=== PATIENT | female | born 1980 | race Caucasian/White ===

== ENCOUNTER → 2016-02-19 | Outpatient (CLI) | payer OTHER | LOC: M WUC 14:13 | PROVIDERS: ATTEND Family Medicine | DX: E03.9 Hypothyroidism, unspecified (principal) ==

== ENCOUNTER → 2016-03-18 | Outpatient (CLI) | payer OTHER ==
--- NOTE | 2016-03-18 15:48 | REP ---
Chest x-ray: Three views. History: Acute frontal sinusitis. Cough for 2 weeks. Findings: A small to moderate size hiatal hernia is seen. There are clips in the upper abdomen suggesting previous cholecystectomy. The lungs are well inflated and clear. No infiltrate is seen. Heart size is normal. Pulmonary vasculature is not increased. No significant bony abnormality. Impression: Hiatal hernia noted behind the heart. Otherwise no acute disease. Signed by Isac Car MD 03/18/2016 04:35 P
== END ==
LOC: M ADAMS 09:51
PROVIDERS: ATTEND Family Medicine
DX: J01.10 Acute frontal sinusitis, unspecified (principal); K44.9 Diaphragmatic hernia without obstruction or gangrene

== ENCOUNTER → 2016-03-24 | Outpatient (REF) | payer OTHER | LOC: M LABNEURO 09:44 | PROVIDERS: ATTEND Physician Assistant Medical | DX: G43.909 Migraine, unspecified, not intractable, without status migrainosus (principal); R42 Dizziness and giddiness ==

== ENCOUNTER → 2016-06-22 | Outpatient (REF) | payer OTHER | LOC: M LABNEURO 16:52 | PROVIDERS: ATTEND Physician Assistant Medical | DX: G43.909 Migraine, unspecified, not intractable, without status migrainosus (principal) ==

== ENCOUNTER → 2017-02-18 | Outpatient (REF) | payer OTHER, MEDICAID ==
[2017-02-18 15:35] LABS: BASO # 0.1 10^3/uL (0.0-0.2); BASO % 0.6 % (0.0-1.0); EOS # 0.3 10^3/uL (0.0-0.50); EOS % 2.6 % (0.0-3.0); HEMATOCRIT 38.9 % (36.0-47.0); HEMOGLOBIN 12.3 g/dl (12.0-16.0); IMMATURE GRANULOCYTE # 0.1 10^3/uL (0-0); IMMATURE GRANULOCYTE % 0.8 % (0-0); LYMPH # 2.8 10^3/uL (1.5-4.5); LYMPH % 27.9 % (24.0-44.0); MEAN CORPUSCULAR HEMOGLOBIN 27.2 pg (27.0-33.0); MEAN CORPUSCULAR HGB CONC 31.6 g/dl (32.0-36.5); MEAN CORPUSCULAR VOLUME 86.1 fl (80.0-96.0); MONO # 0.6 10^3/uL (0.0-0.8); NEUTROPHILS # 6.2 10^3/uL (1.8-7.7); NEUTROPHILS % 62.1 % (36.0-66.0); PLATELET COUNT, AUTOMATED 274 10^3/uL (150-450); RED BLOOD COUNT 4.52 10^6/uL (4.00-5.40); RED CELL DISTRIBUTION WIDTH 15.1 % (11.5-14.5)
[2017-02-18 16:07] LABS: ALBUMIN 3.2 GM/DL (3.2-5.2); ALBUMIN/GLOBULIN RATIO 0.76 (1.00-1.93); ALKALINE PHOSPHATASE 101 U/L (45-117); ALT/SGPT 22 U/L (12-78); ANION GAP 9 MEQ/L (8-16); AST/SGOT 11 U/L (7-37); BILIRUBIN,TOTAL 0.2 MG/DL (0.2-1.0); BLOOD UREA NITROGEN 14 MG/DL (7-18); CALCIUM LEVEL 8.2 MG/DL (8.5-10.1); CARBON DIOXIDE LEVEL 24 MEQ/L (21-32); CHLORIDE LEVEL 105 MEQ/L (98-107); CREATININE FOR GFR 0.77 MG/DL (0.55-1.02); GLOMERULAR FILTRATION RATE > 60.0 (>60); GLUCOSE, FASTING 97 MG/DL (70-105); IRON (FE) 53 UG/DL (50-170); SODIUM LEVEL 138 MEQ/L (136-145); TOTAL PROTEIN 7.4 GM/DL (6.4-8.2)
== END ==
LOC: M LAB REF 15:26
DX: Z13.9 Encounter for screening, unspecified (principal)

== ENCOUNTER → 2017-09-02 | Outpatient (REF) | payer OTHER, MEDICAID ==
[2017-09-02 21:09] LABS: CHLAMYDIA DNA AMPLIFICATION NEGATIVE (NEGATIVE); GC DNA AMPLIFICATION NEGATIVE (NEGATIVE)
== END ==
LOC: M LAB REF 16:36
DX: Z13.9 Encounter for screening, unspecified (principal)

== ENCOUNTER → 2017-09-02 | Outpatient (REF) | payer OTHER, MEDICAID ==
[2017-09-03 10:10] LABS: HEPATITIS C VIRUS ABY INDEX 0.3 INDEX (<0.8)
== END ==
LOC: M LAB REF 17:18
DX: Z13.9 Encounter for screening, unspecified (principal)
CPT/HCPCS: 86803

== ENCOUNTER → 2017-12-10 | Outpatient (CLI) | payer OTHER | LOC: M RAD 09:03 | DX: N92.0 Excessive and frequent menstruation with regular cycle (principal) | CPT/HCPCS: 76856 ==

== ENCOUNTER 2018-01-10 10:34 | Emergency (ER) | payer OTHER | END 2018-01-10 14:30 | disposition home or self-care (01) | LOC: M ED 10:34 | DX: S61.205A Unspecified open wound of left ring finger without damage to nail, initial encounter (principal); W27.2XXA Contact with scissors, initial encounter; Y92.018 Other place in single-family (private) house as the place of occurrence of the external cause; Z88.0 Allergy status to penicillin; Z79.899 Other long term (current) drug therapy | CPT/HCPCS: 99283 ==

== ENCOUNTER → 2018-01-18 | Outpatient (REF) | payer OTHER ==
[2018-01-18 17:57] LABS: BASO # 0.1 10^3/uL (0.0-0.2); BASO % 0.9 % (0.0-1.0); EOS # 0.2 10^3/uL (0.0-0.50); EOS % 2.1 % (0.0-3.0); HEMATOCRIT 43.9 % (36.0-47.0); HEMOGLOBIN 13.8 g/dl (12.0-15.5); IMMATURE GRANULOCYTE % 0.7 % (0-3.0); LYMPH # 2.2 10^3/uL (1.5-4.5); LYMPH % 25.3 % (24.0-44.0); MEAN CORPUSCULAR HEMOGLOBIN 26.9 pg (27.0-33.0); MEAN CORPUSCULAR HGB CONC 31.4 g/dl (32.0-36.5); MEAN CORPUSCULAR VOLUME 85.6 fl (80.0-96.0); MONO # 0.5 10^3/uL (0.0-0.8); NEUTROPHILS # 5.7 10^3/uL (1.8-7.7); PLATELET COUNT, AUTOMATED 308 10^3/uL (150-450); RED BLOOD COUNT 5.13 10^6/uL (4.00-5.40); RED CELL DISTRIBUTION WIDTH 14.7 % (11.5-14.5); WHITE BLOOD COUNT 8.7 10^3/uL (4.0-10.0)
[2018-01-18 19:05] LABS: ALBUMIN 3.4 GM/DL (3.2-5.2); ALBUMIN/GLOBULIN RATIO 0.79 (1.00-1.93); ALKALINE PHOSPHATASE 86 U/L (45-117); ALT/SGPT 15 U/L (12-78); ANION GAP 11 MEQ/L (8-16); AST/SGOT 8 U/L (7-37); BILIRUBIN,TOTAL 0.3 MG/DL (0.2-1.0); BLOOD UREA NITROGEN 16 MG/DL (7-18); CALCIUM LEVEL 8.1 MG/DL (8.5-10.1); CARBON DIOXIDE LEVEL 23 MEQ/L (21-32); CHLORIDE LEVEL 105 MEQ/L (98-107); GLOMERULAR FILTRATION RATE > 60.0 (>58); GLUCOSE, FASTING 88 MG/DL (70-100); IRON (FE) 56 UG/DL (50-170); POTASSIUM SERUM 4.2 MEQ/L (3.5-5.1); SODIUM LEVEL 139 MEQ/L (136-145); TOTAL 25(OH) VITAMIN D 32.8 NG/ML (30.0-100.0); TOTAL PROTEIN 7.7 GM/DL (6.4-8.2)
== END ==
LOC: M LAB REF 17:36
DX: Z13.9 Encounter for screening, unspecified (principal)
CPT/HCPCS: 83540

== ENCOUNTER 2018-02-14 08:27 | Day surgery (SDC) | payer OTHER ==
[2018-02-14] VITALS (8 sets, daily range): BP systolic 105–134; BP diastolic 55–76
[~2018-02-14] VITALS: Ht 157.5 cm; Wt 118.8 kg
[~2018-02-14 08:27] MED LIST: ACET500T15 PO; D 1010004 PO; FERR325T3 PO; GABA-843 PO; LEVO200T4 PO; LEVO25TA5 PO; LIDOCAINE 2% INJ 100 MG/5 ML SDV (FOR ANES.) As Ordered ONE; LR 1,000 ML IV ONE; MIDAZOLAM INJ 2 MG/2 ML VIAL (J2250) As Ordered ONE; NAPR-885 PO; ONDANSETRON 4MG/2ML VIAL (J2405) As Ordered ONE; OXYB10TA PO; PANT40TA3 PO; PROPOFOL 200 MG/20 ML VIAL As Ordered ONE; RANI150T PO; ROCURONIUM BROMIDE 50 MG/5 ML VIAL As Ordered ONE; SERT-138 PO; SERT25TA PO; SYNT100T PO; SYNT25TA PO; SYNT300T2 PO; TIZA2CAP PO; ZONI100C2 PO; dexameTHASONE 4 MG/ML 1ML VIAL (J1100) As Ordered ONE; fentaNYL 250 MCG/5 ML INJECTION (J3010) As Ordered ONE
[2018-02-14 08:50] LABS: HEMATOCRIT 41.8 % (36.0-47.0); HEMOGLOBIN 13.1 g/dl (12.0-15.5); MEAN CORPUSCULAR HGB CONC 31.3 g/dl (32.0-36.5); PLATELET COUNT, AUTOMATED 297 10^3/uL (150-450); RED BLOOD COUNT 4.86 10^6/uL (4.00-5.40); WHITE BLOOD COUNT 8.5 10^3/uL (4.0-10.0)
[2018-02-14] MEDS ORDERED: BUPIVACAINE HCL 0.25% 10 ML VIAL As Ordered ONE (10:46)
[2018-02-14] MEDS ORDERED: ROCURONIUM BROMIDE 50 MG/5 ML VIAL As Ordered ONE (11:29)
[2018-02-14] MEDS ORDERED: KETOROLAC 60 MG/2 ML VIAL (J1885) As Ordered ONE (11:38)
[2018-02-14] MEDS ORDERED: METHYLENE BLUE 0.5% (5MG/ML) 10 ML AMP (PROVAYBLUE)(Q9968 PER 1MG) As Ordered ONE (11:39)
[2018-02-14] MEDS ORDERED: OXYC1TAB23 PO (12:28)
[2018-02-14] MEDS ORDERED: fentaNYL 100 MCG/2 ML INJECTION (J3010) As Ordered ONE (12:45)
[2018-02-14] MEDS ORDERED: ONDANSETRON 4MG/2ML VIAL (J2405) IV PRN ×2 (12:45→13:00)
[2018-02-14] MEDS ORDERED: PERCOCET 5MG/325MG TAB PO PRN ×2 (12:45)
[2018-02-14] MEDS ORDERED: LR 1,000 ML IV SCH ×2 (12:45)
[2018-02-14] MEDS: fentaNYL 100 MCG/2 ML INJECTION (J3010) IV PRN ×4 (12:46→13:01)
--- NOTE | 2018-02-14 13:22 | RO ---
DATE OF OPERATION: 02/14/2018 PREOPERATIVE DIAGNOSIS: Menorrhagia. POSTOPERATIVE DIAGNOSIS: Menorrhagia. PROCEDURES: Robotic-assisted laparoscopic hysterectomy, cystoscopy. SURGEON: Alexey Reddy MD PRESIDENT CELEBRITY ACQUISTION: SOLA Mayo ANESTHESIA: General endotracheal. ESTIMATED BLOOD LOSS: 100 mL. URINE OUTPUT: 100 mL. FINDINGS: Normal-appearing uterus, fallopian tubes, and ovaries. Evidence of prior tubal sterilization. Moderately large superior rectocele which did not extend to the introitus. Normal upper abdomen. DESCRIPTION OF PROCEDURE: Operative summary: The patient was taken to the operating room, where general endotracheal anesthesia was induced. She was prepped and draped in sterile fashion in the dorsal lithotomy position. A Lopez catheter was placed. A VCare uterine manipulator was placed. A periumbilical incision was made with a scalpel. A Veress needle was placed through this incision while tenting up on the skin of the abdomen. Intra-abdominal location of the Veress needle was assessed with the use of a saline-filled syringe. Pneumoperitoneum was created. The Veress needle was removed. An 11 mm trocar using NeedFeed was inserted through this incision. A 5 mm scope with camera was used to visualize the abdomen and pelvis. Three 8 mm suprapubic ports were placed under direct visualization. The patient was placed in Trendelenburg position. The da Denys surgical robot was docked to the ports. Using the bipolar fenestrated instrument and the vessel sealer, the uteroovarian ligaments, fallopian tubes, and round ligaments were coagulated and incised. The anterior and posterior leaves of the broad ligament were . Using Endoshears, the bladder flap was created, a combination of blunt and sharp dissection. The uterine vessels were coagulated and incised. A colpotomy was created in the upper vagina at the level of the VCare cup. This was extended circumferentially around the cervix. The specimen, containing the uterus and cervix, was removed through the vagina. The vaginal cuff was closed with #1 V-Loc suture in a running fashion. The pelvis was irrigated with good hemostasis. The patient received methylene blue dye intravenously. Cystoscopy was performed using a 70-degree cystoscope. Bilateral ureteral jets were identified. There was no evidence of injury to the bladder. All cystoscope was removed. All ports were removed. The skin was closed with 4-0 Monocryl subcuticular sutures. Sponge, instrument, and needle counts were correct. Ingris Rogers NP, assisted with all aspects of the procedure from beginning to end. She assisted with positioning the patient, inserting the ports. She manipulated the uterus and removed specimen at the end of the case. She also helped close all ports and move the patient.
[2018-02-14] MEDS: DOCUSATE SODIUM 100 MG CAP PO SCH ×2 (15:09→20:17)
[2018-02-14] MEDS: MORPHINE 4 MG/ML 1ML VIAL/SYRINGE (J2270) IV PRN (15:37)
[2018-02-14] MEDS: PERCOCET 5MG/325MG TAB PO PRN ×2 (17:19→22:37)
[2018-02-14] MEDS: KETOROLAC 30 MG/ML VIAL (J1885) IV PRN (19:39)
[2018-02-15] VITALS: BP 121/72
[2018-02-15] MEDS: MORPHINE 4 MG/ML 1ML VIAL/SYRINGE (J2270) IV PRN (00:21)
[2018-02-15 04:00] VITALS: BP 120/69
[2018-02-15] MEDS: PERCOCET 5MG/325MG TAB PO PRN ×2 (04:26→10:59)
[2018-02-15 07:45] VITALS: BP 129/63
[2018-02-15] MEDS: DOCUSATE SODIUM 100 MG CAP PO SCH (07:54)
[2018-02-15 08:00] VITALS: BP 119/69
[2018-02-15] MEDS: KETOROLAC 30 MG/ML VIAL (J1885) IV PRN (08:03)
[2018-02-15 12:15] VITALS: BP 119/75
== END 2018-02-15 14:20 | disposition home or self-care (01) ==
LOC: M SDC 08:27 → M PED 14:15 → M SDC 02-15 14:20
PROVIDERS: ATTEND Specialist
DX: N92.0 Excessive and frequent menstruation with regular cycle (principal); D25.1 Intramural leiomyoma of uterus; N81.6 Rectocele; I10 Essential (primary) hypertension; E03.9 Hypothyroidism, unspecified; J45.909 Unspecified asthma, uncomplicated; G40.89 Other seizures; K21.9 Gastro-esophageal reflux disease without esophagitis; D64.9 Anemia, unspecified; M79.7 Fibromyalgia; E66.9 Obesity, unspecified; G43.909 Migraine, unspecified, not intractable, without status migrainosus; M72.0 Palmar fascial fibromatosis [Dupuytren]; M12.9 Arthropathy, unspecified; F32.9 Major depressive disorder, single episode, unspecified; F41.9 Anxiety disorder, unspecified; M62.838 Other muscle spasm; M54.5 Low back pain; N32.81 Overactive bladder; Z68.42 Body mass index [BMI] 45.0-49.9, adult; Z88.0 Allergy status to penicillin; Z79.899 Other long term (current) drug therapy; Z87.891 Personal history of nicotine dependence; Z98.51 Tubal ligation status
CPT/HCPCS: 36415; 58570; 85027; 86850; 86900; 86901; 88307; J0690; J1100; J1885; J2250; J2270; J2405; J3010; Q9968

== ENCOUNTER → 2018-04-19 | Outpatient (REF) | payer OTHER ==
[~2018-04-19] MED LIST changes: -LIDOCAINE 2% INJ 100 MG/5 ML SDV (FOR ANES.) As Ordered ONE; -LR 1,000 ML IV ONE; -MIDAZOLAM INJ 2 MG/2 ML VIAL (J2250) As Ordered ONE; -ONDANSETRON 4MG/2ML VIAL (J2405) As Ordered ONE; +OXYC1TAB23 PO; -PROPOFOL 200 MG/20 ML VIAL As Ordered ONE; -ROCURONIUM BROMIDE 50 MG/5 ML VIAL As Ordered ONE; -dexameTHASONE 4 MG/ML 1ML VIAL (J1100) As Ordered ONE; -fentaNYL 250 MCG/5 ML INJECTION (J3010) As Ordered ONE
[2018-04-19 19:25] LABS: C REACTIVE PROTEIN QUANTITATIV 1.9 MG/DL (0.00-0.30); THYROID STIMULATING HORMONE 0.147 uIU/ML (0.358-3.740)
[2018-04-21 15:52] LABS: ANTI DOUBLE STRAND-DNA AB 1 IU/mL (0-9); ANTINUCLEAR ANTIBODIES DIRECT Negative (Negative)
== END ==
LOC: M LAB REF 18:17
PROVIDERS: ATTEND Nurse Practitioner Adult Health
DX: M79.7 Fibromyalgia (principal); E03.9 Hypothyroidism, unspecified

== ENCOUNTER → 2018-06-14 | Outpatient (REF) | payer OTHER ==
[~2018-06-14] MED LIST changes: -SERT25TA PO; +SERT25TA85 PO
[2018-06-14 18:58] LABS: AMORPHOUS SEDIMENT MODERATE (NEGATIVE); BACTERIA, URINE AUTO NEGATIVE (NEGATIVE); MUCUS, URINE MODERATE (NEGATIVE); RBC, URINE AUTO 0 /HPF (0-3); SQUAMOUS EPITHELIAL CELL UR AU 0 /HPF (0-6); WBC, URINE AUTO 0 /HPF (0-3)
== END ==
LOC: M SMT 16:50
PROVIDERS: ATTEND Specialist
DX: M79.7 Fibromyalgia (principal)

== ENCOUNTER → 2018-07-12 | Outpatient (REF) | payer OTHER | LOC: M LAB REF 13:16 | PROVIDERS: ATTEND Nurse Practitioner Adult Health | DX: E03.9 Hypothyroidism, unspecified (principal) ==

== ENCOUNTER → 2018-08-04 | Outpatient (REF) | payer OTHER ==
[2018-08-04 20:39] LABS: CHLAMYDIA DNA AMPLIFICATION NEGATIVE (NEGATIVE); GC DNA AMPLIFICATION NEGATIVE (NEGATIVE)
== END ==
LOC: M LAB REF 17:09
PROVIDERS: ATTEND Nurse Practitioner Adult Health
DX: R30.0 Dysuria (principal)

== ENCOUNTER → 2018-08-15 | Outpatient (REF) | payer OTHER ==
[2018-08-15 18:03] LABS: APPEARANCE, URINE HAZY (CLEAR); BACTERIA, URINE AUTO NEGATIVE (NEGATIVE); BILIRUBIN, URINE AUTO NEGATIVE (NEGATIVE); BLOOD, URINE BLOOD NEGATIVE (NEGATIVE); COLOR, URINE YELLOW (YELLOW); GLUCOSE, URINE (UA) AUTO NEGATIVE (NEGATIVE); KETONE, URINE AUTO NEGATIVE (NEGATIVE); LEUKOCYTE ESTERASE, URINE AUTO NEGATIVE (NEGATIVE); MUCUS, URINE SMALL (NEGATIVE); NITRITE, URINE AUTO NEGATIVE (NEGATIVE); PROTEIN, URINE AUTO NEGATIVE (NEGATIVE); RBC, URINE AUTO 0 /HPF (0-3); SQUAMOUS EPITHELIAL CELL UR AU 3 /HPF (0-6); UROBILINOGEN, URINE AUTO 0.2 mg/dL (0.0-2.0); WBC, URINE AUTO 1 /HPF (0-3)
== END ==
LOC: M LAB REF 16:44
PROVIDERS: ATTEND Nurse Practitioner Adult Health
DX: R30.0 Dysuria (principal)

== ENCOUNTER → 2018-09-01 | Outpatient (REF) | payer OTHER | LOC: M LAB REF 17:35 | PROVIDERS: ATTEND Nurse Practitioner Adult Health | DX: E03.9 Hypothyroidism, unspecified (principal) ==

== ENCOUNTER → 2018-10-06 | Outpatient (REF) | payer OTHER ==
[~2018-10-06] MED LIST changes: -OXYB10TA PO; +OXYB10TA2 PO
[2018-10-06 18:02] LABS: INR 1.04; PROTHROMBIN TIME 13.3 SECONDS (11.8-14.0)
[2018-10-06 18:06] LABS: BASO # 0.1 10^3/uL (0.0-0.2); BASO % 0.7 % (0.0-1.0); EOS # 0.2 10^3/uL (0.0-0.50); EOS % 1.9 % (0.0-3.0); HEMATOCRIT 46.5 % (36.0-47.0); HEMOGLOBIN 14.3 g/dl (12.0-15.5); LYMPH # 2.7 10^3/uL (1.5-4.5); LYMPH % 26.1 % (24.0-44.0); MEAN CORPUSCULAR HEMOGLOBIN 27.4 pg (27.0-33.0); MEAN CORPUSCULAR HGB CONC 30.8 g/dl (32.0-36.5); MEAN CORPUSCULAR VOLUME 89.1 fl (80.0-96.0); MONO # 0.8 10^3/uL (0.0-0.8); NEUTROPHILS # 6.4 10^3/uL (1.8-7.7); NEUTROPHILS % 62.5 % (36.0-66.0); PLATELET COUNT, AUTOMATED 293 10^3/uL (150-450); RED BLOOD COUNT 5.22 10^6/uL (4.00-5.40); WHITE BLOOD COUNT 10.2 10^3/uL (4.0-10.0)
[2018-10-06 18:20] LABS: ALBUMIN 3.4 GM/DL (3.2-5.2); ALT/SGPT 18 U/L (12-78); BILIRUBIN,TOTAL 0.3 MG/DL (0.2-1.0); BLOOD UREA NITROGEN 13 MG/DL (7-18); CALCIUM LEVEL 8.8 MG/DL (8.5-10.1); CARBON DIOXIDE LEVEL 30 MEQ/L (21-32); CHLORIDE LEVEL 104 MEQ/L (98-107); CREATININE FOR GFR 0.91 MG/DL (0.55-1.30); GLOMERULAR FILTRATION RATE > 60.0 (>58); GLUCOSE, FASTING 84 MG/DL (70-100); POTASSIUM SERUM 4.2 MEQ/L (3.5-5.1); SODIUM LEVEL 137 MEQ/L (136-145)
[2018-10-06 19:08] LABS: HIV 1&2 SCREEN CENTAUR NEGATIVE (NEGATIVE)
[2018-10-06 20:14] LABS: CHLAMYDIA DNA AMPLIFICATION NEGATIVE (NEGATIVE); GC DNA AMPLIFICATION NEGATIVE (NEGATIVE)
== END ==
LOC: M LAB REF 16:38
PROVIDERS: ATTEND Nurse Practitioner Adult Health
DX: Z11.3 Encounter for screening for infections with a predominantly sexual mode of transmission (principal); Z01.818 Encounter for other preprocedural examination

== ENCOUNTER 2018-11-02 05:51 | Day surgery (SDC) | payer OTHER ==
[~2018-11-02] VITALS: Ht 157.5 cm; Wt 115.7 kg
[~2018-11-02 05:51] MED LIST changes: +AIMO70IN SC
[2018-11-02] MEDS ORDERED: LR 1,000 ML IV ONE (06:00)
[2018-11-02] MEDS ORDERED: dexameTHASONE 4 MG/ML 1ML VIAL (J1100) IV ONE (06:00)
[2018-11-02] MEDS ORDERED: CLINDAMYCIN 900 MG in IV 1 EA IV ONE (06:00)
[2018-11-02] MEDS ORDERED: CLINDAMYCIN 900 MG/50 ML PREMIX BAG As Ordered ONE (06:38)
[2018-11-02] MEDS ORDERED: LIDOCAINE 2% W/ EPINEPHRINE 1.7 ML DENTAL INJ As Ordered ONE (07:07)
[2018-11-02] MEDS ORDERED: CHLORHEXIDINE GLUCONATE 0.12 % 15ML UDC (PERIDEX ORAL RINSE) As Ordered ONE ×2 (07:07→08:41)
[2018-11-02] MEDS ORDERED: MIDAZOLAM INJ 2 MG/2 ML VIAL (J2250) As Ordered ONE (07:10)
[2018-11-02] MEDS ORDERED: ONDANSETRON 4MG/2ML VIAL (J2405) As Ordered ONE (07:11)
[2018-11-02] MEDS ORDERED: dexameTHASONE 4 MG/ML 1ML VIAL (J1100) As Ordered ONE ×2 (07:11→07:55)
[2018-11-02] MEDS ORDERED: PROPOFOL 200 MG/20 ML VIAL As Ordered ONE (07:11)
[2018-11-02] MEDS ORDERED: fentaNYL 100 MCG/2 ML INJECTION (J3010) As Ordered ONE (07:11)
[2018-11-02] MEDS ORDERED: LIDOCAINE 2% INJ 100 MG/5 ML SDV (FOR ANES.) As Ordered ONE (07:11)
[2018-11-02] MEDS ORDERED: ROCURONIUM BROMIDE 50 MG/5 ML VIAL As Ordered ONE (07:11)
[2018-11-02] MEDS ORDERED: OXYMETAZOLINE NASAL SPRAY (AFRIN) As Ordered ONE (07:20)
[2018-11-02] MEDS ORDERED: ACETAMINOPHEN 1000MG 100ML IV BTL (OFIRMEV) (J0131 PER 10MG) As Ordered ONE (08:14)
[2018-11-02] MEDS ORDERED: SUGAMMADEX SODIUM 500 MG/5 ML VIAL (BRIDION) As Ordered ONE (08:14)
[2018-11-02] MEDS ORDERED: KETOROLAC 60 MG/2 ML VIAL (J1885) As Ordered ONE (08:17)
[2018-11-02] MEDS ORDERED: PERCOCET 5MG/325MG TAB As Ordered ONE (09:26)
[2018-11-02] MEDS ORDERED: ONDANSETRON 4MG/2ML VIAL (J2405) IV PRN (09:30)
[2018-11-02] MEDS ORDERED: PERCOCET 5MG/325MG TAB PO PRN (09:30)
[2018-11-02] MEDS ORDERED: fentaNYL 100 MCG/2 ML INJECTION (J3010) IV PRN (09:30)
[2018-11-02] MEDS ORDERED: LR 1,000 ML IV SCH (09:30)
[2018-11-02 10:20] VITALS: BP 147/80
--- NOTE | 2018-11-03 08:34 | RO ---
DATE OF PROCEDURE: 11/02/2018 PREOPERATIVE DIAGNOSES: 1. Morbid obesity, psychiatric issues. 2. Grossly decayed and symptomatic teeth number 15 and 16 and 19 as well as symptomatic and impacted tooth #1. POSTOPERATIVE DIAGNOSES: Status post 1. Morbid obesity, psychiatric issues. 2. Grossly decayed and symptomatic teeth number 15 and 16 and 19 as well as symptomatic and impacted tooth #1. PROCEDURE PERFORMED: Surgical extraction of tooth number 1, 15, 16, 19 as well as repair of sinus exposure and perforation site #1 with primary closure. SURGEON: Jeff Bean DMD ANESTHESIA: General endotracheal anesthesia via nasal TOVA. SPECIMEN: Teeth for gross only. INDICATIONS FOR SURGERY: Mrs. Ding is a pleasant 38-year-old female who was referred to my office for evaluation for extraction of number 1,15, 16, 17 and 32. She also desires to have #19 removed as it has been very symptomatic and does not want to look for root canal option. She also desired no intention to have number 17 and 32 removed as they are impacted and asymptomatic at the time being. Clinical examination reveals deeply impacted tooth #1 with majority of the roots into the maxillary sinus proper, erupted and grossly decayed teeth #15, 16, large resin # 19 with tenderness to palpation and very deeply impacted tooth #17 with the apices of the inferior border of the mandible while #32 is malposition and also full bony impacted. All the risks, benefits and alternatives were explained to the patient. She desires to only have #1,15, 16 and 19 removed, Does not want 17 or 32 removed at this time. Since she is morbidly obese she is not a candidate for office anesthesia. Local anesthesia and nitrous oxide were offered she declined and elected to general anesthesia an operating room setting and she did have preoperative clearance by her primary care doctor. History and physical was performed and is in the patient's chart and informed consent was gone over with the patient in detail and was signed on the date surgery. DESCRIPTION OF PROCEDURE: On November 02, 2018 the patient presented to preop holding area. Any last minute questions were addressed. Paperwork was updated, so was the informed consent. At this point, the patient was taken back to the operating room. She was laid supine on the operating room table. Ulnar nerve protectors were placed. Noninvasive cardiac monitors were applied. At that point, the patient underwent general anesthesia and was intubated with a nasal TOVA, which was taped to the patient's forehead. She has then prepped and draped in the usual sterile fashion. A time-out procedure was performed to identify the patient and the proceed and any other precautions. Preoperative antibiotics and steroids were administered in the IV. At this point, a moist throat pack was inserted in the patient's oropharynx followed by the administration of six carpules of 2% lidocaine with 1:100,000 epinephrine as local infiltration and blocks. A full-thickness flap over the tuberosity of site #1 extending into the sulcus of tooth #2 and 3 with a small release incision was performed. Flap was dissected subperiosteally. Tooth #1 was not noted. Therefore a Surgitome was used to remove bone to make a bony window until the entire crown of the tooth was noted. A elevator was used mesially to luxate the tooth out distally in its entirety. A 5.5 sinus perforation was noted medially, which was packed with three Gelfoams immediately. Socket was curetted and irrigated and the flap was then advanced to closed primarily with #3-0 chromic sutures. At this point attention was then given teeth number 15 and 16 were a sulcular flat was released. Site # 15, 16 and 14 with a small release incision. Small amount of buccal bone was removed from areas 16 and 15. The elevator was then used to luxate the teeth and a forceps #150 was used to remove the teeth in their entirety. Sockets were copiously irrigated and curetted. No sinus exposure noted. Flaps were closed with #3-0 chromic. At this point attention was then given tooth #19 where a full-thickness flap with a distal release incision was made. Buccal bone was removed. Tooth was then luxated and delivered with forceps socket was copiously irrigated and curetted. Flap was closed with #3-0 chromics. At this point, gauze hemostasis was achieved. Oral cavity was irrigated and suctioned, the throat pack was removed. The patient was then awakened from anesthesia and taken back to the postanesthesia care unit (PACU). COMPLICATIONS: None to mention at time of surgery. ESTIMATED BLOOD LOSS: 10 mL. DRAINS: There were no drains placed.
== END 2018-11-02 11:58 | disposition home or self-care (01) ==
LOC: M SDC 05:51
PROVIDERS: ATTEND Dentist
DX: K02.9 Dental caries, unspecified (principal); K01.1 Impacted teeth; E66.01 Morbid (severe) obesity due to excess calories; E03.9 Hypothyroidism, unspecified; K58.8 Other irritable bowel syndrome; K21.9 Gastro-esophageal reflux disease without esophagitis; F32.9 Major depressive disorder, single episode, unspecified; M79.7 Fibromyalgia; G43.909 Migraine, unspecified, not intractable, without status migrainosus; D64.9 Anemia, unspecified; Z88.0 Allergy status to penicillin; Z79.899 Other long term (current) drug therapy
CPT/HCPCS: 88300; D7210; D7261; D9223; J0131; J1100; J1885; J2250; J2405; J3010

== ENCOUNTER 2018-12-06 08:30 | Outpatient (RCR) | payer OTHER | END 2018-12-08 | LOC: M PT 08:30 | PROVIDERS: ATTEND Physician Assistant Medical | DX: M50.223 Other cervical disc displacement at C6-C7 level (principal) ==

== ENCOUNTER → 2018-12-12 | Outpatient (REF) | payer OTHER ==
[2018-12-12 17:56] LABS: APPEARANCE, URINE CLEAR (CLEAR); BACTERIA, URINE AUTO NEGATIVE (NEGATIVE); BILIRUBIN, URINE AUTO NEGATIVE (NEGATIVE); BLOOD, URINE BLOOD NEGATIVE (NEGATIVE); COLOR, URINE STRAW (YELLOW); GLUCOSE, URINE (UA) AUTO NEGATIVE (NEGATIVE); KETONE, URINE AUTO NEGATIVE (NEGATIVE); LEUKOCYTE ESTERASE, URINE AUTO NEGATIVE (NEGATIVE); NITRITE, URINE AUTO NEGATIVE (NEGATIVE); PROTEIN, URINE AUTO NEGATIVE (NEGATIVE); RBC, URINE AUTO 0 /HPF (0-3); SPECIFIC GRAVITY URINE AUTO 1.008 (1.002-1.035); SQUAMOUS EPITHELIAL CELL UR AU 4 /HPF (0-6); UROBILINOGEN, URINE AUTO 0.2 mg/dL (0.0-2.0); WBC, URINE AUTO 1 /HPF (0-3)
[2018-12-12 20:38] LABS: CHLAMYDIA DNA AMPLIFICATION NEGATIVE (NEGATIVE); GC DNA AMPLIFICATION NEGATIVE (NEGATIVE)
== END ==
LOC: M LAB REF 17:27
PROVIDERS: ATTEND Nurse Practitioner Adult Health
DX: Z11.3 Encounter for screening for infections with a predominantly sexual mode of transmission (principal); R30.0 Dysuria

== ENCOUNTER → 2018-12-12 | Outpatient (REF) | payer OTHER ==
[2018-12-12 20:19] LABS: HIV 1&2 SCREEN CENTAUR NEGATIVE (NEGATIVE)
== END ==
LOC: M LAB REF 18:55
PROVIDERS: ATTEND Nurse Practitioner Adult Health
DX: Z11.3 Encounter for screening for infections with a predominantly sexual mode of transmission (principal)

== ENCOUNTER 2018-12-22 08:30 | Outpatient (RCR) | payer OTHER | END 2019-01-07 | LOC: M PT 08:30 | PROVIDERS: ATTEND Physician Assistant Medical | DX: Z47.89 Encounter for other orthopedic aftercare (principal) ==

== ENCOUNTER 2019-01-23 08:30 | Outpatient (RCR) | payer OTHER | END 2019-02-07 | LOC: M PT 08:30 | PROVIDERS: ATTEND Physician Assistant Medical | DX: M50.223 Other cervical disc displacement at C6-C7 level (principal) ==

== ENCOUNTER → 2019-04-21 | Outpatient (CLI) | payer OTHER ==
[~2019-04-21] MED LIST changes: -OXYB10TA2 PO; +OXYB10TA23 PO; +ZONI100C17 PO; -ZONI100C2 PO
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
== END ==
LOC: M PAIN 09:00
PROVIDERS: ATTEND Nurse Practitioner Family
DX: M79.18 Myalgia, other site (principal); M79.7 Fibromyalgia; Z79.899 Other long term (current) drug therapy; Z88.0 Allergy status to penicillin

== ENCOUNTER → 2019-06-13 | Outpatient (CLI) | payer OTHER ==
[~2019-06-13] MED LIST changes: +BUPIVACAINE HCL 0.25% 10ML VIAL As Ordered ONE; +BUPIVACAINE HCL 0.25% 30ML VIAL As Ordered ONE; +NORCO, ANEXSIA 5/325MG TABLET (HYDROcodone/ACETAMINOPHEN) As Ordered ONE; +diazePAM 2 MG TAB As Ordered ONE
--- NOTE | 2019-06-14 00:12 | ECWPNPC ---
PATIENT NAME: EMRE REYES : 1980 GENDER: FEMALE VISIT DATE: 06/13/2019 DISCHARGE DATE: 06/13/19 1359 VISIT LOCKED DATE TIME: PHYSICIAN: ASIF SMITH MD RESOURCE: ASIF SMITH MD REASON FOR APPOINTMENT 1. TPI BILAT NECK/UPPER BACK (NO STERIODS) NOT TESTED HISTORY OF PRESENT ILLNESS HISTORY OF PRESENT ILLNESS: PAIN THE PATIENT DESCRIBES THE PAIN... FALL RISK SCREENING: SCREENING :NO FALLS REPORTED IN THE LAST YEAR CURRENT MEDICATIONS TAKING ZONISAMIDE 100 MG CAPSULE 1 CAPSULE ORALLY TWICE A DAY, NOTES: 06/12 10AM TAKING TIZANIDINE HCL 2 MG TABLET 1 TAB ORALLY TWICE DAILY NEEDED, NOTES: 06/12 10AM TAKING NAPROSYN 500 MG TABLET 1 TABLET WITH FOOD OR MILK ORALLY TWICE A DAY, NOTES: 1 MONTH TAKING TYLENOL 325 MG TABLET 2 TABLETS NEEDED ORALLY EVERY 6 HRS, NOTES: 1 MONTH TAKING FERROUS SULFATE 325 MG CAPSULE 1 CAP(S) ORALLY TWICE A DAY, NOTES: 06/12 10AM TAKING LEVOTHYROXINE SODIUM 150 MCG TABLET 1 TABLET ON AN EMPTY STOMACH IN THE MORNING WITH THE 200 MCG TABLET ORALLY ONCE A DAY, NOTES: 06/12 10AM TAKING SERTRALINE HCL 100 MG TABLET 1 TABLET ORALLY ONCE A DAY, NOTES: 06/11 10PM TAKING GABAPENTIN 600 MG TABLET 1 CAPSULE ORALLY FOUR TIMES DAILY, NOTES: 06/12 10AM TAKING VITAMIN D3 1000 UNIT TABLET TAKE 1 TABLET BY MOUTH ONCE DAILY ORALLY ONCE A DAY, NOTES: 06/11 9PM TAKING PANTOPRAZOLE SODIUM 40 MG TABLET DELAYED RELEASE 1 TABLET ORALLY ONCE A DAY, NOTES: 06/12 10AM TAKING SERTRALINE HCL 25 MG TABLET 1 TABLET ORALLY ONCE A DAY, NOTES: 125 MGNTOTAL TAKING OXYBUTYNIN CHLORIDE ER 10 MG TABLET EXTENDED RELEASE 24 HOUR TAKE ONE TABLET BY MOUTH EVERY DAY , NOTES: 06/11 9PM TAKING ESTRACE 0.1 MG/GM CREAM 1 GRAM DIRECTED VAGINAL THREE TIMES PER WEEK, NOTES: 06/11 11PM MEDICATION LIST REVIEWED AND RECONCILED WITH THE PATIENT PAST MEDICAL HISTORY DIVERTICULOSIS FISTULA IN ANO (SEE RECORDS DR. DICKSNO HAYES) ANXIETY AND DEPRESSION CHRONIC HEADACHES (MIGRAINE, MAYBE OCCIPITAL NEURALGIA), SEES NEURO HYPOTHYROIDISM EVAL FOR ABSENCE SEIZURES: DX PSYCHOGENIC NON-EPILEPTIC SEIZURES AFTER MONITORED INPATIENT AT [facility], CBT RECOMMENDED PER NEUROLOGY, CONVERSION DISORDER FOLLOWING SEIZURE EVAL HYPERTENSION HYPOTHYROID ASTHAMA BACKPAIN ALLERGIES PENICILLIN (FOR ALLERGIES USE ONLY): UNKNOWN - ALLERGY SURGICAL HISTORY APPENDECTOMY 1995 CHOLECYSTECTOMY 2000 FISTULA REPAIR 2009 RIGHT ARM BONE RESET 1991 TUBAL LIGATION 2005 COLONOSCOPY 2009, 2013 EGD 2013 PARTIAL HYSTERECTOMY (UTERUS, FALLOPIAN TUBES, CERVIX) 02/2018 FAMILY HISTORY FATHER: ALIVE, PANCREATIC CANCER, DIAGNOSED WITH OTHER MALIGNANT NEOPLASM OF UNSPECIFIED SITE MOTHER: , RHEUMATOID ARTHRITIS, FROM COPD MATERNAL GRAND MOTHER: [place] IN LATE 60S, DIABETES MELLITUS 1 SON(S) , 1 DAUGHTER(S) - HEALTHY. HEART DISEASE, COPD, DEPRESSION, HYPERTENSION, ANXIETY, HYPERCHOLESTEROLEMIA, PROSTATE CANCER. SOCIAL HISTORY GENERAL: TOBACCO USE ARE YOU A:NONSMOKER LATEX QUESTIONNAIRE LATEX ALLERGY : HAVE YOU EVER DEVELOPED ANY TYPE OF REACTION AFTER HANDLING LATEX PRODUCTS SUCH RUBBER GLOVES, CONDOMS, DIAPHRAGMS, BALLOONS, SOCKS, OR UNDERWEAR?NO LATEX ALLERGY : HAVE YOU EVER DEVELOPED ANY TYPE OF REACTION DURING OR AFTER DENTAL APPOINTMENT, VAGINAL/RECTAL EXAMINATION, SURGICAL PROCEDURE, OR ANY OTHER EXPOSURE?NO LATEX RISK : HAVE YOU EVER HAD ANY DIFFICULTY BREATHING OR HIVES AFTER EATING OR HANDLING ANY FRUITS, OR VEGETABLES; SUCH KIWI, BANANAS, STONE FRUITS, OR CHESTNUTSNO LATEX RISK : DO YOU HAVE A PREVIOUS PERSONAL HISTORY OF MORE THAN NINE SURGERIES, SPINA BIFIDA, OR REPEATED CATHERIZATIONS? NO LATEX RISK : ARE YOU FREQUENTLY EXPOSED TO LATEX PRODUCTS IN YOUR OCCUPATION?NO DATE ASKED : 06/13/2019 BMI CARE GOAL FOLLOW-UP ABOVE NORMAL BMI FOLLOW-UPWEIGHT MONITORING ALCOHOL SCREENING DID YOU HAVE A DRINK CONTAINING ALCOHOL IN THE PAST YEAR?NO POINTS0 INTERPRETATIONNEGATIVE RECREATIONAL DRUG USE DENIES. CAFFEINE CAFFEINE USE?YES HOW OFTEN AND HOW MUCH? ICED TEA 36 OZ DAILY SEXUAL HX HAD SEX IN THE LAST 12 MONTHS (VAGINAL, ORAL, OR ANAL)?YES WITHMEN ONLY PREVENTION STRATEGIES DISCUSSED:OTHER USE PROTECTION?NO LMP:11/22/15 HAVE YOU EVER HAD AN STD?NO PRESYBETERIAN NO PROTESTANT BELIEFS THAT WOULD IMPACT HEALTH CARE. LANGUAGE FAROESE. EDUCATION LEVEL OF EDUCATION:COLLEGE LEARNING BARRIERS / SPECIAL NEEDS CHANGE FROM LAST VISIT?NO 04/26/2019 BARRIERS TO LEARNING?NO HEARING IMPAIRED?NO VISION IMPAIRED?YES COGNITIVELY IMPAIRED?NO :CORRECTIVE LENSES READINESS TO LEARN?YES LEARNING PREFERENCES?NO LEARNING CAPABILITIES PRESENT?YES EMOTIONAL BARRIERS?NO SPECIAL DEVICES?NO MARKET GARDEN WORKER NEEDED?NO DOMESTIC VIOLENCE NONE. OCCUPATION: UNEMPLOYED, HAS ONE RETAKE EXAM TO COMPLETE MASTERS IN HUMAN RESOURCES. DIET: REGULAR. EXERCISE: NO REGULAR EXERCISE. MARITAL STATUS: SHE IS TO DAV REYES, BUT THEY HAVE BEEN SINCE 08/2005; SHE IS ENGAGED TO ANN MARIE VANG JR. 06/07/17 PT IS NO LONGER WITH ANN MARIE.. OTHERS AT HOME: FIANCE AND SON; DAUGHTER LIVES IN [place] WITH HER FATHER. NEW PATIENT PAIN DIARY TODAY'S VISIT 06/13/2019 PATIENT DESCRIBES PAIN :ACHING, IT COMES AND GOES, SHARP, STABBING, TENDER, THROBBING, SORE, SHOOTING FROM 0-10, WHAT LEVEL IS YOUR PAIN TODAY?7 PAIN CLINIC PFS, CLERGY, PUBLIC HEALTH REFERRALS WAS THE PROVIDER NOTIFIED OF ANY PERTINENT INFO?YES HAS THE PATIENT BEEN EDUCATED REGARDING HIS/HER PLAN OF CARE?YES HAS THE PATIENT BEEN EDUCATED REGARDING PAIN, THE RISK FOR PAIN, THE IMPORTANCE OF EFFECTIVE PAIN MANAGEMENT, AND THE PAIN ASSESSMENT PROCESS?YES ADVANCE DIRECTIVE ADVANCE DIRECTIVE DISCUSSED WITH PATIENT:YES PT STATES THAT SHE DOES NOT HAVE A HCP AT THIS TIME, DECLINES ASSISTANCE WITH PAPERWORK. DS HOSPITALIZATION/MAJOR DIAGNOSTIC PROCEDURE SURGERY RELATED SEIZURE STUDY [facility] 2017 REVIEW OF SYSTEMS REVIEWED BY: PROVIDER: ASIF SMITH MD . CONSTITUTIONAL: ANY CHANGE IN YOUR MEDICAL CONDITION? NO . CHILLS NO . FEVER NO . INFECTION: DO YOU HAVE NEW INFECTIONS? NO . DO YOU HAVE HISTORY OF MRSA? NO . MUSCULOSKELETAL: ANY NEW PATTERNS OF PAIN OR NUMBNESS? NO . GASTROENTEROLOGY: ANY NEW CHANGE IN BOWEL CONTROL? NO . GENITOURINARY: ANY NEW CHANGE IN BLADDER CONTROL? NO . IS THERE A CHANCE YOU COULD BE ? NO . HEMATOLOGY/LYMPH: DO YOU TAKE ANY BLOOD THINNERS? (FOR EXAMPLE- COUMADIN, PLAVIX, AGGRENOX, PLATEL, PRADAXA, OR XARELTO) NO . WHEN WAS YOUR LAST DOSE? DATE: TIME: . NEUROLOGY: HAVE YOU FALLEN IN THE PAST 12 MONTHS? YES, PT STATES THAT SHE FELL WHILE AT HOME, NO INJURY, NO REPORT TO ED. DS . ANY NEW EXTREMITY NUMBNESS OR WEAKNESS? NO . CARDIOLOGY: DO YOU HAVE A PACEMAKER OR DEFIBRILLATOR? NO . RESPIRATORY: HAVE YOU BEEN SICK IN THE PAST WEEK? NO . FEVER NO . FLU LIKE SYMPTOMS? NO . COUGH NO . INTEGUMENTARY: DO YOU HAVE ANY RASHES OR OPEN SORES? NO . ALLERGIC/IMMUNO: ARE YOU ALLERGIC TO IV DYE? NO . ANY NEW ALLERGIES? NO . PSYCHIATRIC: DO YOU HAVE THOUGHTS OF HURTING YOURSELF OR SOMEONE ELSE? NO . ARE YOU ABUSED, NEGLECTED, OR IN AN UNSAFE ENVIRONMENT? NO . ENDOCRINOLOGY: ARE YOU DIABETIC? NO . OTHER: DO YOU NEED ANY PRESCRIPTIONS? NO . IF YES, PLEASE LIST: ____ . ANY NEW PROBLEMS WITH YOUR MEDICATIONS? NO . WHEN DID YOU LAST EAT? 06/11 7PM . WHEN DID YOU LAST DRINK? 06/12 10AM . WHAT DID YOU LAST DRINK? CLEAR DRINK, RED BULL . NAME OF PERSON DRIVING YOU HOME? YELLOW CAB . DO YOU HAVE ANY OTHER QUESTIONS OR CONCERNS NO . VITAL SIGNS WT 260.8 LBS, HT 62 IN, BMI 47.70 INDEX, BP 127/61 MM HG, HR 83 /MIN, RR 18 /MIN, TEMP 97.4 F, OXYGEN SAT % 99%, SAFE IN ENV? (Y/N) Y, NA INITIALS AW 1131, REVIEWED BY: DS. ASSESSMENTS MYALGIA, OTHER SITE - M79.18 (PRIMARY) PROCEDURES PN TRIGGER POINT INJECTION NO STEROIDS DATE OF PROCEDURE : PRE PROCEDURE DIAGNOSIS 1. MYALGIA 2. PAIN AT BILATERAL NECK AND BILATERAL SHOULDER AREA POST PROCEDURE DIAGNOSIS 1. MYALGIA 2. PAIN AT BILATERAL NECK AND BILATERAL SHOULDER AREA PROCEDURE TRIGGER POINT INJECTION AT BILATERAL NECK AND BILATERAL SHOULDER AREA SURGEON DR. ASIF SMITH TAP BUILDER NONE ANESTHESIA LOCAL PRE PROCEDURE NOTE 39-YEAR-OLD PATIENT WITH HISTORY OF CHRONIC PAIN AT BILATERAL NECK AND BILATERAL SHOULDER AREA. I EVALUATED THE PATIENT AND REVIEWED THE CHART. THERE IS EVIDENCE OF BANDS OF TISSUE WITH RESTRICTION OF MOVEMENT AND PRESENCE OF TRIGGER POINT AT THE BILATERAL NECK AND BILATERAL SHOULDER AREA. I WENT OVER THE RISKS, ALTERNATIVES, AND BENEFITS ASSOCIATED WITH THIS PROCEDURE. THE PATIENT WOULD LIKE TO PROCEED AND GAVE CONSENT TO PERFORM THE PROCEDURE. THE PATIENT DENIES UNEXPLAINABLE WEIGHT LOSS, FEVER, CHILLS, OR NEW CHANGES IN URINARY OR BOWEL CONTROL DESCRIPTION OF PROCEDURE THE PATIENT WAS BROUGHT TO THE PROCEDURE ROOM AND PLACED IN THE SITTING POSITION. THE AREA WAS CLEANED WITH ALCOHOL. THE PROCEDURE WAS DONE USING ASEPTIC STERILE TECHNIQUES. I CHECKED LATERALITY AND THE LEVEL WHERE THE PROCEDURE WAS GOING TO BE PERFORMED WITH THE PATIENT AND THE SUPPORTING STAFF AT THE MOMENT OF THE TIME OUT IN THE PROCEDURE ROOM. USING A 25-GAUGE NEEDLE, TRIGGER POINTS WERE INJECTED INTO THE BILATERAL NECK AND BILATERAL SHOULDER AREA WITH A TOTAL OF 40 ML OF BUPIVACAINE 0.25%. AGREED WITH THE PATIENT THE PROCEDURE WAS DONE WITHOUT STEROIDS. THERE WAS NO EVIDENCE OF BLOOD, PARESTHESIA OR CEREBROSPINAL FLUID DURING THE PROCEDURE. THE PATIENT WAS SENT TO THE RECOVERY ROOM. THE PATIENT WAS MOVING THE EXTREMITIES AND DOING WELL. THERE WAS NO COMPLICATION DURING THE PROCEDURE POST PROCEDURE NOTE THE PATIENT WILL BE SEEN IN A FOLLOW UP IN THE NEXT FEW WEEKS. I AM LOOKING FOR LONG LASTING PAIN RELIEF FOR THE PATIENT WITH THIS INJECTION. INSTRUCTIONS WERE GIVEN, QUESTIONS WERE ANSWERED, AND THE PATIENT EXPRESSED UNDERSTANDING AND AGREED WITH THE PLAN. I, JACKELYN PRIDE, DOCUMENTED THE ABOVE INFORMATION ACTING A SCRIBE FOR DR. SMITH. I HAVE REVIEWED THE ABOVE DOCUMENT, WRITTEN BY JACKELYN PRIDE, PORCELAIN TECHNICIAN, AND I VERIFY THAT IT IS ACCURATE PROCEDURE CODES 32145 INJECT TRIGGER POINTS 3/> DISPOSITION & COMMUNICATION FOLLOW UP F/UP WOODS LABORER (REASON: POST-PROCEDURE F/UP-NECK PAIN) ELECTRONICALLY SIGNED BY ASIF SMITH MD, MD ON 06/13/2019 AT 05:15 PM EDT DISCLAIMER : THIS IS A VISIT SUMMARY EXTRACTED FROM THE [facility] CHART. IT IS NOT A COPY OF THE [facility] PROGRESS NOTE. MTDJoanna
== END ==
LOC: M PAIN 11:45
PROVIDERS: ATTEND Anesthesiology
DX: M79.18 Myalgia, other site (principal); I10 Essential (primary) hypertension; E03.9 Hypothyroidism, unspecified; Z79.899 Other long term (current) drug therapy; Z88.0 Allergy status to penicillin

== ENCOUNTER → 2019-07-06 | Outpatient (CLI) | payer OTHER ==
[~2019-07-06] MED LIST changes: -BUPIVACAINE HCL 0.25% 10ML VIAL As Ordered ONE; -BUPIVACAINE HCL 0.25% 30ML VIAL As Ordered ONE; -NORCO, ANEXSIA 5/325MG TABLET (HYDROcodone/ACETAMINOPHEN) As Ordered ONE; -diazePAM 2 MG TAB As Ordered ONE
--- NOTE | 2019-07-11 03:13 | ECWPNPC ---
PATIENT NAME: EMRE REYES : 1980 GENDER: FEMALE VISIT DATE: 07/06/2019 DISCHARGE DATE: 07/06/19 1256 VISIT LOCKED DATE TIME: PHYSICIAN: KHOI SWEET RESOURCE: KHOI SWEET REASON FOR APPOINTMENT 1. POST TPI [phone] HISTORY OF PRESENT ILLNESS GENERAL: PATIENT IS AGREEABLE TO TELEPHONE VISIT TODAY. THIS IS A POST PROCEDURE FOLLOW-UP. HAD TRIGGER POINT INJECTIONS, BILATERAL NECK AND SHOULDERS ON 06/13/2019. REPORTING MARKED REDUCTION IN PAIN FOR APPROXIMATELY 2 WEEKS POST PROCEDURE THEN PAIN HAS GRADUALLY RETURNED TO BASELINE. DISCUSSED TREATMENT OPTIONS. -. FALL RISK SCREENING: SCREENING :TWO OR MORE FALLS WITH INJURY IN THE PAST YEAR LOSES HER BALANCE OR DIZZINESS, RIGHT KNEE GIVES OUT PAIN SCREENING: PATIENT HAS A COMPLAINT OF ACUTE OR CHRONIC PAIN :YES LOCATION OF PAIN:NECK, BOTH SHOULDERS, KNEES RIGHT KNEE, ALSO PAIN IN EVERYWHERE FROM FIBROMYALGIA INTENSITY OF PAIN (SCALE OF 1 TO 10):6 AVERAGE 4-8 WHAT DOES YOUR PAIN FEEL LIKE:ACHING, CONTINOUS, SHARP, STABBING, TENDER, THROBBING, SORE, SHOOTING SHOUTING IN ARMS AND LEGS DURATION:CONTINOUS, CONSTANT PAIN IS INCREASED BY: WEATHER CHANGES, OVER ACTIVITY, STRESS PAIN IS DECREASED BY: REST PLAN/GOALS/TREATMENT/INTERVENTION/FOLLOW UP:SEE PLAN NURSING NOTE: -. PAIN CENTER INTAKE QUESTIONS: DO YOU HAVE A HISTORY OF MRSA? :YES NOT SURE WHERE, SHE HAD IT 5-10 YRS AGO DO YOU TAKE A BLOOD THINNERS? :NO DO YOU HAVE ANY BLEEDING DISORDERS? :NO ANY NEW NUMBNESS OR WEAKNESS IN YOUR LEGS OR ARMS? :YES RIGHT KNEE WEAK, SHE DOESN'T HAVE THE STRENGTH IN HER ARMS THAT SHE USE TO HAVE ANY PACEMAKER,DEFIBRILLATOR, OR DORSAL COLUMN STIMULATOR? :NO DO YOU HAVE ANY RASHES OR OPEN SORES? :NO ARE YOU ALLERGIC TO IV DYE? :NO ARE YOU DIABETIC? :NO ANY NEW PROBLEMS WITH YOUR MEDICATIONS? :NO HAVE YOU RECEIVED A VACCINE IN THE PAST 30 DAYS? :NO DO YOU PLAN TO RECEIVE A VACCINE IN THE NEXT 21 DAYS? :NO DO YOU NEED ANY PRESCRIPTION? :NO DO YOU TAKE ANY IMMUNOSUPPRESSIVE MEDICATIONS? :NO CURRENT MEDICATIONS TAKING ZONISAMIDE 100 MG CAPSULE 1 CAPSULE ORALLY TWICE A DAY TAKING TIZANIDINE HCL 2 MG TABLET 1 TAB ORALLY TWICE DAILY NEEDED TAKING NAPROSYN 500 MG TABLET 1 TABLET WITH FOOD OR MILK ORALLY TWICE A DAY NEEDED TAKING TYLENOL 325 MG TABLET 2 TABLETS NEEDED ORALLY EVERY 6 HRS TAKING FERROUS SULFATE 325 MG CAPSULE 1 CAP(S) ORALLY TWICE A DAY TAKING LEVOTHYROXINE SODIUM 150 MCG TABLET 1 TABLET ON AN EMPTY STOMACH IN THE MORNING WITH THE 200 MCG TABLET ORALLY ONCE A DAY TAKING SERTRALINE HCL 100 MG TABLET 1 TABLET ORALLY ONCE A DAY TAKING GABAPENTIN 600 MG TABLET 1 CAPSULE ORALLY FOUR TIMES DAILY TAKING VITAMIN D3 1000 UNIT TABLET TAKE 1 TABLET BY MOUTH ONCE DAILY ORALLY ONCE A DAY TAKING PANTOPRAZOLE SODIUM 40 MG TABLET DELAYED RELEASE 1 TABLET ORALLY ONCE A DAY TAKING SERTRALINE HCL 25 MG TABLET 1 TABLET ORALLY ONCE A DAY TAKING ESTRACE 0.1 MG/GM CREAM 1 GRAM DIRECTED VAGINAL THREE TIMES PER WEEK TAKING OXYBUTYNIN CHLORIDE ER 15 MG TABLET EXTENDED RELEASE 24 HOUR 1 TABLET ORALLY DAILY TAKING AIMOVIG 140 MG/ML SOLUTION AUTO-INJECTOR DIRECTED SUBCUTANEOUS MONTHLY MEDICATION LIST REVIEWED AND RECONCILED WITH THE PATIENT PAST MEDICAL HISTORY DIVERTICULOSIS FISTULA IN ANO (SEE RECORDS DR. DICKSON HAYES) ANXIETY AND DEPRESSION CHRONIC HEADACHES (MIGRAINE, MAYBE OCCIPITAL NEURALGIA), SEES NEURO HYPOTHYROIDISM EVAL FOR ABSENCE SEIZURES: DX PSYCHOGENIC NON-EPILEPTIC SEIZURES AFTER MONITORED INPATIENT AT [facility], CBT RECOMMENDED PER NEUROLOGY, CONVERSION DISORDER FOLLOWING SEIZURE EVAL HYPERTENSION HYPOTHYROID ASTHAMA BACKPAIN JOSHUA MENAPAUSE NECK AND SHOULDER PAIN ALLERGIES PENICILLIN (FOR ALLERGIES USE ONLY): UNKNOWN - ALLERGY SURGICAL HISTORY APPENDECTOMY 1995 CHOLECYSTECTOMY 2000 FISTULA REPAIR 2009 RIGHT ARM BONE RESET 1991 TUBAL LIGATION 2005 COLONOSCOPY 2009, 2013 EGD 2013 PARTIAL HYSTERECTOMY (UTERUS, FALLOPIAN TUBES, CERVIX) 02/2018 FAMILY HISTORY FATHER: ALIVE, PANCREATIC CANCER, ACUTE LEUKEMIA, LUPUS, DIAGNOSED WITH OTHER MALIGNANT NEOPLASM OF UNSPECIFIED SITE MOTHER: , RHEUMATOID ARTHRITIS, FROM COPD MATERNAL GRAND MOTHER: [place] IN LATE 60S, DIABETES MELLITUS 1 SON(S) , 1 DAUGHTER(S) - HEALTHY. HEART DISEASE, COPD, DEPRESSION, HYPERTENSION, ANXIETY, HYPERCHOLESTEROLEMIA, PROSTATE CANCER. SOCIAL HISTORY GENERAL: TOBACCO USE ARE YOU A:NONSMOKER LATEX QUESTIONNAIRE LATEX ALLERGY : HAVE YOU EVER DEVELOPED ANY TYPE OF REACTION AFTER HANDLING LATEX PRODUCTS SUCH RUBBER GLOVES, CONDOMS, DIAPHRAGMS, BALLOONS, SOCKS, OR UNDERWEAR?NO LATEX ALLERGY : HAVE YOU EVER DEVELOPED ANY TYPE OF REACTION DURING OR AFTER DENTAL APPOINTMENT, VAGINAL/RECTAL EXAMINATION, SURGICAL PROCEDURE, OR ANY OTHER EXPOSURE?NO LATEX RISK : HAVE YOU EVER HAD ANY DIFFICULTY BREATHING OR HIVES AFTER EATING OR HANDLING ANY FRUITS, OR VEGETABLES; SUCH KIWI, BANANAS, STONE FRUITS, OR CHESTNUTSNO LATEX RISK : DO YOU HAVE A PREVIOUS PERSONAL HISTORY OF MORE THAN NINE SURGERIES, SPINA BIFIDA, OR REPEATED CATHERIZATIONS? NO LATEX RISK : ARE YOU FREQUENTLY EXPOSED TO LATEX PRODUCTS IN YOUR OCCUPATION?NO DATE ASKED : 07/06/2019 BMI CARE GOAL FOLLOW-UP ABOVE NORMAL BMI FOLLOW-UPWEIGHT MONITORING ALCOHOL SCREENING DID YOU HAVE A DRINK CONTAINING ALCOHOL IN THE PAST YEAR?NO POINTS0 INTERPRETATIONNEGATIVE RECREATIONAL DRUG USE DENIES. CAFFEINE CAFFEINE USE?YES HOW OFTEN AND HOW MUCH? ICED TEA 36 OZ DAILY SEXUAL HX HAD SEX IN THE LAST 12 MONTHS (VAGINAL, ORAL, OR ANAL)?YES WITHMEN ONLY PREVENTION STRATEGIES DISCUSSED:OTHER USE PROTECTION?NO LMP:11/22/15 HAVE YOU EVER HAD AN STD?NO HOAHAOISM NO ORIENTAL ORTHODOX BELIEFS THAT WOULD IMPACT HEALTH CARE. LANGUAGE JAPANESE. EDUCATION LEVEL OF EDUCATION:COLLEGE LEARNING BARRIERS / SPECIAL NEEDS CHANGE FROM LAST VISIT?NO BARRIERS TO LEARNING?NO HEARING IMPAIRED?NO VISION IMPAIRED?YES :CORRECTIVE LENSES COGNITIVELY IMPAIRED?NO READINESS TO LEARN?YES LEARNING PREFERENCES?NO LEARNING CAPABILITIES PRESENT?YES EMOTIONAL BARRIERS?NO SPECIAL DEVICES?NO DELIVERY AND INSTALLATION SUBCONTRACTOR NEEDED?NO DOMESTIC VIOLENCE DO YOU FEEL SAFE IN YOUR ENVIRONMENT?YES OCCUPATION: UNEMPLOYED, HAS ONE RETAKE EXAM TO COMPLETE MASTERS IN HUMAN RESOURCES. DIET: REGULAR. EXERCISE: NO REGULAR EXERCISE. MARITAL STATUS: SHE IS TO DAV REYES, BUT THEY HAVE BEEN SINCE 08/2005; SHE IS ENGAGED TO ANN MARIE VANG JR. 06/07/17 PT IS NO LONGER WITH ANN MARIE.. OTHERS AT HOME: FIANCE AND SON; DAUGHTER LIVES IN [place] WITH HER FATHER. PAIN CLINIC PFS, CLERGY, PUBLIC HEALTH REFERRALS HAS THE PATIENT BEEN EDUCATED REGARDING HIS/HER PLAN OF CARE?YES HAS THE PATIENT BEEN EDUCATED REGARDING PAIN, THE RISK FOR PAIN, THE IMPORTANCE OF EFFECTIVE PAIN MANAGEMENT, AND THE PAIN ASSESSMENT PROCESS?YES ADVANCE DIRECTIVE ADVANCE DIRECTIVE DISCUSSED WITH PATIENT:YES 07/06/2019 PT STATES THAT SHE DOES NOT HAVE A HCP AT THIS TIME, DECLINES ASSISTANCE WITH PAPERWORK. AD HOSPITALIZATION/MAJOR DIAGNOSTIC PROCEDURE SURGERY RELATED SEIZURE STUDY [place] [id number] [facility] REVIEW OF SYSTEMS CONSTITUTIONAL: ANY RECENT FEVER OR ILLNESS NO . CHILLS NO . GASTROENTEROLOGY: BOWEL INCONTINENCE NO . ANY NEW CHANGE IN BOWEL CONTROL? NO . ABDOMINAL PAIN NO . CONSTIPATION NO . GENITOURINARY: ANY NEW CHANGE IN BLADDER CONTROL? NO . IS THERE A CHANCE YOU COULD BE ? NO . URINARY INCONTINENCE NO . CARDIOLOGY: CHEST PRESSURE NO . CHEST PAIN NO . RESPIRATORY: COUGH NO . SHORTNESS OF BREATH NO . ASSESSMENTS MYALGIA OF MUSCLE OF NECK - M79.18 (PRIMARY) TREATMENT MYALGIA OF MUSCLE OF NECK NOTES: TRIGGER POINT INJECTIONS, BILATERAL NECK AND SHOULDERS TOTAL TIME SPENT DURING TELEMED VISIT WAS APPROXIMATELY 12 MINUTES. OTHERS NOTES: DUE TO VIRTUAL VISIT V/S NOT DONE. PREVENTIVE MEDICINE PAIN CLINIC TEACHING: PROCEDURE TEACHING TRIGGER POINT INJECTION REVIEWED WITH PATEINT ALONG WITH PRE-PROCEDURE INSTRUCTIONS-PATIENT VERBALIZED UNDERSTANDING. PRINTED INSTRUCTIONS WERE MAILED TO PATIENT. AD. DISPOSITION & COMMUNICATION FOLLOW UP POST (REASON: TRIGGER POINT INJECTIONS, BILATERAL NECK AND SHOULDERS) ELECTRONICALLY SIGNED BY SOLA MCKEON ON 07/10/2019 AT 01:42 PM EDT DISCLAIMER : THIS IS A VISIT SUMMARY EXTRACTED FROM THE [facility] CHART. IT IS NOT A COPY OF THE [employer] [facility] PROGRESS NOTE. FRANCES
== END ==
LOC: M PAIN 10:45
PROVIDERS: ATTEND Nurse Practitioner Family
DX: M79.18 Myalgia, other site (principal)

== ENCOUNTER → 2019-07-14 | Outpatient (CLI) | payer OTHER | LOC: M LABSMTC 10:07 | PROVIDERS: ATTEND Anesthesiology | DX: Z03.818 Encounter for observation for suspected exposure to other biological agents ruled out (principal); Z11.59 Encounter for screening for other viral diseases | CPT/HCPCS: C9803; U0003 ==

== ENCOUNTER → 2019-07-17 | Outpatient (CLI) | payer OTHER ==
[~2019-07-17] MED LIST changes: +BUPIVACAINE HCL 0.25% 10ML VIAL As Ordered ONE; +BUPIVACAINE HCL 0.25% 30ML VIAL As Ordered ONE; +NORCO, ANEXSIA 5/325MG TABLET (HYDROcodone/ACETAMINOPHEN) As Ordered ONE; +dexameTHASONE 10MG/1ML VIAL PRES.FREE (J1100 PER 1MG) As Ordered ONE; +diazePAM 2 MG TAB As Ordered ONE
--- NOTE | 2019-07-18 00:06 | ECWPNPC ---
PATIENT NAME: EMRE REYES : 1980 GENDER: FEMALE VISIT DATE: 07/17/2019 DISCHARGE DATE: 07/17/19 1235 VISIT LOCKED DATE TIME: PHYSICIAN: ASIF SMITH MD RESOURCE: ASIF SMITH MD REASON FOR APPOINTMENT 1. TRIGGER POINT INJECTIONS, BILATERAL NECK AND SHOULDERS PAT DONE- MEDICAID TRANSPORT DID NOT SHOW-THEY ARE GOING TO SEND SOMEONE NEW TO PICK HER UP. WILL BE HERE A SOON POSSIBLE HISTORY OF PRESENT ILLNESS GENERAL: -. FALL RISK SCREENING: SCREENING :TWO OR MORE FALLS WITH INJURY IN THE PAST YEAR PAIN SCREENING: PATIENT HAS A COMPLAINT OF ACUTE OR CHRONIC PAIN :YES LOCATION OF PAIN:NECK, LEFT SHOULDER, RIGHT SHOULDER, HAND(S) ARMS INTENSITY OF PAIN (SCALE OF 1 TO 10): -09/17 WHAT DOES YOUR PAIN FEEL LIKE:ACHING, BURNING, CONTINOUS, OTHER PINCHING DURATION:CONTINOUS PAIN IS INCREASED BY:ACTIVITIES PRONGED SITTING PAIN IS DECREASED BY:OTHERS MASSAGE, ICE NURSING NOTE: -. PAIN CENTER INTAKE QUESTIONS: DO YOU HAVE A HISTORY OF MRSA? :YES THINKS HAD A SKIN INFECTION WITH MRSA IN 2003 DO YOU TAKE A BLOOD THINNERS? :NO DO YOU HAVE ANY BLEEDING DISORDERS? :NO ANY NEW NUMBNESS OR WEAKNESS IN YOUR LEGS OR ARMS? :NO ANY PACEMAKER,DEFIBRILLATOR, OR DORSAL COLUMN STIMULATOR? :NO DO YOU HAVE ANY RASHES OR OPEN SORES? :YES SMALL CUTS ON FINGERS DUE TO WOODWORKING ARE YOU ALLERGIC TO IV DYE? :NO ARE YOU DIABETIC? :NO ANY NEW PROBLEMS WITH YOUR MEDICATIONS? :NO HAVE YOU RECEIVED A VACCINE IN THE PAST 30 DAYS? :NO DO YOU PLAN TO RECEIVE A VACCINE IN THE NEXT 21 DAYS? :NO DO YOU NEED ANY PRESCRIPTION? :NO DO YOU TAKE ANY IMMUNOSUPPRESSIVE MEDICATIONS? :NO CURRENT MEDICATIONS TAKING ZONISAMIDE 100 MG CAPSULE 1 CAPSULE ORALLY TWICE A DAY, NOTES: 07/17 799 TAKING TIZANIDINE HCL 2 MG TABLET 1 TAB ORALLY TWICE DAILY NEEDED, NOTES: 07/16 599 TAKING FERROUS SULFATE 325 MG CAPSULE 1 CAP(S) ORALLY TWICE A DAY, NOTES: 07/16 599 TAKING LEVOTHYROXINE SODIUM 150 MCG TABLET 1 TABLET ON AN EMPTY STOMACH IN THE MORNING ORALLY ONCE A DAY, NOTES: 07/16 599 TAKING SERTRALINE HCL 100 MG TABLET 1 TABLET ORALLY ONCE A DAY, NOTES: 07/15 2029 TAKING GABAPENTIN 600 MG TABLET 1 CAPSULE ORALLY FOUR TIMES DAILY, NOTES: 07/16 599 TAKING VITAMIN D3 1000 UNIT TABLET TAKE 1 TABLET BY MOUTH ONCE DAILY ORALLY ONCE A DAY, NOTES: 07/15 2029 TAKING PANTOPRAZOLE SODIUM 40 MG TABLET DELAYED RELEASE 1 TABLET ORALLY ONCE A DAY, NOTES: 07/16 599 TAKING SERTRALINE HCL 25 MG TABLET 1 TABLET ORALLY ONCE A DAY, NOTES: 07/15 2029 TAKING ESTRACE 0.1 MG/GM CREAM 1 GRAM DIRECTED VAGINAL THREE TIMES PER WEEK, NOTES: 07/13 TAKING OXYBUTYNIN CHLORIDE ER 15 MG TABLET EXTENDED RELEASE 24 HOUR 1 TABLET ORALLY DAILY, NOTES: 07/16 599 TAKING AIMOVIG 140 MG/ML SOLUTION AUTO-INJECTOR DIRECTED SUBCUTANEOUS MONTHLY, NOTES: 06/25 TAKING CELEBREX 100 MG CAPSULE 1 CAPSULE WITH FOOD ORALLY ONCE A DAY, NOTES: 07/16 599 TAKING ACETAMINOPHEN 500 MG TABLET 1 TABLET NEEDED ORALLY TWICE A DAY, NOTES: LAST WEEK NOT-TAKING NAPROSYN 500 MG TABLET 1 TABLET WITH FOOD OR MILK ORALLY TWICE A DAY NEEDED NOT-TAKING TYLENOL 325 MG TABLET 2 TABLETS NEEDED ORALLY EVERY 6 HRS MEDICATION LIST REVIEWED AND RECONCILED WITH THE PATIENT PAST MEDICAL HISTORY DIVERTICULOSIS FISTULA IN [place] (SEE RECORDS DR. DICKSON HAYES) ANXIETY AND DEPRESSION CHRONIC HEADACHES (MIGRAINE, MAYBE OCCIPITAL NEURALGIA), SEES NEURO HYPOTHYROIDISM EVAL FOR ABSENCE SEIZURES: DX PSYCHOGENIC NON-EPILEPTIC SEIZURES AFTER MONITORED INPATIENT AT [facility] [email or web address]], CBT RECOMMENDED PER NEUROLOGY, CONVERSION DISORDER FOLLOWING SEIZURE EVAL BACKPAIN PERIMENOPAUSE NECK AND SHOULDER PAIN ALLERGIES PENICILLIN (FOR ALLERGIES USE ONLY): UNKNOWN - ALLERGY SURGICAL HISTORY APPENDECTOMY 1995 CHOLECYSTECTOMY 2000 FISTULA REPAIR 2009 RIGHT ARM BONE RESET 1991 TUBAL LIGATION 2005 COLONOSCOPY 2009, 2013 EGD 2013 PARTIAL HYSTERECTOMY (UTERUS, FALLOPIAN TUBES, CERVIX) 02/2018 FAMILY HISTORY FATHER: ALIVE 71 YRS, PANCREATIC CANCER, ACUTE LEUKEMIA, LUPUS, DIAGNOSED WITH OTHER MALIGNANT NEOPLASM OF UNSPECIFIED SITE MOTHER: , RHEUMATOID ARTHRITIS, FROM COPD MATERNAL GRAND MOTHER: MD IN LATE 60S, DIABETES MELLITUS 1 SON(S) , 1 DAUGHTER(S) - HEALTHY. HEART DISEASE, COPD, DEPRESSION, HYPERTENSION, ANXIETY, HYPERCHOLESTEROLEMIA, PROSTATE CANCER. SOCIAL HISTORY GENERAL: TOBACCO USE ARE YOU A:NONSMOKER LATEX QUESTIONNAIRE LATEX ALLERGY : HAVE YOU EVER DEVELOPED ANY TYPE OF REACTION AFTER HANDLING LATEX PRODUCTS SUCH RUBBER GLOVES, CONDOMS, DIAPHRAGMS, BALLOONS, SOCKS, OR UNDERWEAR?NO LATEX ALLERGY : HAVE YOU EVER DEVELOPED ANY TYPE OF REACTION DURING OR AFTER DENTAL APPOINTMENT, VAGINAL/RECTAL EXAMINATION, SURGICAL PROCEDURE, OR ANY OTHER EXPOSURE?NO DATE ASKED : 07/06/2019 LATEX RISK : HAVE YOU EVER HAD ANY DIFFICULTY BREATHING OR HIVES AFTER EATING OR HANDLING ANY FRUITS, OR VEGETABLES; SUCH KIWI, BANANAS, STONE FRUITS, OR CHESTNUTSNO LATEX RISK : DO YOU HAVE A PREVIOUS PERSONAL HISTORY OF MORE THAN NINE SURGERIES, SPINA BIFIDA, OR REPEATED CATHERIZATIONS? NO LATEX RISK : ARE YOU FREQUENTLY EXPOSED TO LATEX PRODUCTS IN YOUR OCCUPATION?NO BMI CARE GOAL FOLLOW-UP ABOVE NORMAL BMI FOLLOW-UPWEIGHT MONITORING ALCOHOL SCREENING DID YOU HAVE A DRINK CONTAINING ALCOHOL IN THE PAST YEAR?NO POINTS0 INTERPRETATIONNEGATIVE RECREATIONAL DRUG USE DRUG USE? DENIES 07/14/19 CAFFEINE CAFFEINE USE?YES HOW OFTEN AND HOW MUCH? ICED TEA 36 OZ DAILY SEXUAL HX HAD SEX IN THE LAST 12 MONTHS (VAGINAL, ORAL, OR ANAL)?YES WITHMEN ONLY PREVENTION STRATEGIES DISCUSSED:OTHER USE PROTECTION?NO LMP:11/22/15 HAVE YOU EVER HAD AN STD?NO ROMAN CATHOLIC NO PENTECOSTALISM BELIEFS THAT WOULD IMPACT HEALTH CARE. LANGUAGE TURKMEN. EDUCATION LEVEL OF EDUCATION:COLLEGE LEARNING BARRIERS / SPECIAL NEEDS CHANGE FROM LAST VISIT?NO BARRIERS TO LEARNING?NO HEARING IMPAIRED?NO VISION IMPAIRED?YES COGNITIVELY IMPAIRED?NO :CORRECTIVE LENSES READINESS TO LEARN?YES LEARNING PREFERENCES?NO LEARNING CAPABILITIES PRESENT?YES EMOTIONAL BARRIERS?NO SPECIAL DEVICES?NO CHUCK BONER NEEDED?NO DOMESTIC VIOLENCE DO YOU FEEL SAFE IN YOUR ENVIRONMENT?YES OCCUPATION: UNEMPLOYED, HAS ONE RETAKE EXAM TO COMPLETE MASTERS IN HUMAN RESOURCES. DIET: REGULAR. EXERCISE: NO REGULAR EXERCISE. MARITAL STATUS: SHE IS TO DAV REYES, BUT THEY HAVE BEEN SINCE 08/2005; SHE IS ENGAGED TO ANN MARIE VANG JR. 06/07/17 PT IS NO LONGER WITH ANN MARIE.. OTHERS AT HOME: FIANCE AND SON; DAUGHTER LIVES IN [place] WITH HER FATHER. PAIN CLINIC PFS, CLERGY, PUBLIC HEALTH REFERRALS HAS THE PATIENT BEEN EDUCATED REGARDING HIS/HER PLAN OF CARE?YES HAS THE PATIENT BEEN EDUCATED REGARDING PAIN, THE RISK FOR PAIN, THE IMPORTANCE OF EFFECTIVE PAIN MANAGEMENT, AND THE PAIN ASSESSMENT PROCESS?YES ADVANCE DIRECTIVE ADVANCE DIRECTIVE DISCUSSED WITH PATIENT:YES 07/06/2019 PT STATES THAT SHE DOES NOT HAVE A HCP AT THIS TIME, DECLINES ASSISTANCE WITH PAPERWORK. AD HOSPITALIZATION/MAJOR DIAGNOSTIC PROCEDURE SURGERY RELATED SEIZURE STUDY [facility] CHILDBIR[facility] VITAL SIGNS WT 268.4 LBS, HT 62 IN, BMI 49.09 INDEX, BP 133/83 MM HG, HR 83 /MIN, RR 18 /MIN, TEMP 97.0 F, OXYGEN SAT % 99%, SAFE IN ENV? (Y/N) YES, NA INITIALS SC 11:45, REVIEWED BY: RACHAEL. ASSESSMENTS MYALGIA, OTHER SITE - M79.18 (PRIMARY) PROCEDURES PAIN NURSING RECORD PRE-PROCEDURE IV SITE N/A, PRE-PROCEDURE ORAL MEDICATIONS VALIUM 2 MG AND HYDROCODONE/ACETAMINOPHEN 5/325 GIVEN AT 1155 LAS : LUNGS CLEAR BILATERALLY, HEART SOUNDS REGULAR PROCEDURE IN ROOM 1125, PHYSICIAN IN ROOM 1208, START 1211, FINISH 1215, PHYSICIAN OUT OF ROOM 1216, OUT OF ROOM 1230, STEROID DEXAMETHASONE, O2 RA, ECG N/A, PATIENT SHIELDED NO, SAFETY STRAP NO, PREP ALCOHOL, IV INFUSED N/A, DRESSING TEGADERM LOC: 1. ALERT, ORIENTED RESP: 1. REGULAR, NO DYSPNEA COLOR: 1. PINK SKIN: 1. WARM, DRY POSITION: 4. OTHER SITTING VITALS: 1120 129/83 83-18 98% DISCHARGE: POST PAIN 1, DRESSING SITE DRY AND INTACT, IV N/A, GAIT STEADY, TEACHING COMPLETED, PATIENT ACKNOWLEDGES UNDERSTANDING YES, PATIENT DISCHARGED AT 1235 PN TRIGGER POINT INJECTION WITH STEROIDS PRE PROCEDURE DIAGNOSIS 1. MYALGIA 2. PAIN AT BILATERAL NECK AND BILATERAL SHOULDER AREA POST PROCEDURE DIAGNOSIS 1. MYALGIA 2. PAIN AT BILATERAL NECK AND BILATERAL SHOULDER AREA PROCEDURE TRIGGER POINT INJECTION AT BILATERAL NECK AND BILATERAL SHOULDER AREA SURGEON DR. ASIF SMITH SPORTS LAWYER NONE ANESTHESIA LOCAL PRE PROCEDURE NOTE THE PATIENT HAS A HISTORY OF CHRONIC PAIN AT THE RIGHT AND LEFT NECK AND RIGHT AND LEFT SHOULDER AREA. I EVALUATED THE PATIENT AND REVIEWED THE CHART. THERE IS EVIDENCE OF BANDS OF TISSUE WITH RESTRICTION OF MOVEMENT AND PRESENCE OF TRIGGER POINT AT THE RIGHT AND LEFT NECK AND RIGHT AND LEFT SHOULDER AREA. I WENT OVER THE RISKS, ALTERNATIVES, AND BENEFITS ASSOCIATED WITH THIS PROCEDURE. I DISCUSSED THAT THE USE OF STEROIDS MAY CONTRIBUTE TO IMMUNOSUPPRESSION OF THE PATIENT'S BODY AGAINST INFECTIONS SUCH THE CARMONA VIRUS, COVID-19. THE PATIENT IS AWARE OF THE POTENTIAL COMPLICATIONS ASSOCIATED WITH AN INFECTION OF THIS VIRUS INCLUDING . THE PATIENT WOULD LIKE TO PROCEED AND GIVE CONSENT TO PERFORMED THE PROCEDURE. THE PATIENT DENIES UNEXPLAINABLE WEIGHT LOSS, FEVER, CHILLS, OR NEW CHANGES IN URINARY OR BOWEL CONTROL. THE PATIENT IS COVID-19 NEGATIVE DESCRIPTION OF PROCEDURE THE PATIENT WAS BROUGHT TO THE PROCEDURE ROOM AND PLACED IN THE SITTING POSITION. THE AREA WAS CLEANED WITH ALCOHOL. THE PROCEDURE WAS DONE USING ASEPTIC STERILE TECHNIQUE. I CHECKED LATERALITY AND THE LEVEL WHERE THE PROCEDURE WAS GOING TO BE PERFORMED WITH THE PATIENT AND THE SUPPORTING STAFF AT THE MOMENT OF THE TIME OUT IN THE PROCEDURE ROOM. USING A 25-GAUGE NEEDLE, TRIGGER POINTS WERE INJECTED AT THE RIGHT AND LEFT NECK AND RIGHT AND LEFT SHOULDER AREA WITH A TOTAL OF 40 ML OF BUPIVACAINE 0.25% AND DEXAMETHASONE 10 MG. THERE WAS NO EVIDENCE OF BLOOD, PARESTHESIA OR CEREBROSPINAL FLUID DURING THE PROCEDURE. THE PATIENT WAS SENT TO THE RECOVERY ROOM. THE PATIENT WAS MOVING THE EXTREMITIES AND DOING WELL. THERE WAS NO COMPLICATION DURING THE PROCEDURE. EBL LESS THAN 5 ML POST PROCEDURE NOTE THE PROCEDURE DONE WAS DISCUSSED WITH THE PATIENT. THE PATIENT WILL BE SEEN IN A FOLLOW UP IN THE NEXT FEW WEEKS. I AM LOOKING FOR LONG LASTING PAIN RELIEF FOR THE PATIENT WITH THIS INTERVENTION. INSTRUCTIONS WERE GIVEN, QUESTIONS WERE ANSWERED, AND THE PATIENT EXPRESSED UNDERSTANDING AND AGREES WITH THE PLAN. THE PATIENT IS AWARE TO STAY HOME FOR THE NEXT WEEK, IF POSSIBLE, DUE TO COIVD-19. I, JACKELYN PRIDE, DOCUMENTED THE ABOVE INFORMATION ACTING A SCRIBE FOR DR. SMITH. I HAVE REVIEWED THE ABOVE DOCUMENT, WRITTEN BY JACKELYN PRIDE, RIGGING SUPERVISOR, AND I VERIFY THAT IT IS ACCURATE PROCEDURE CODES 45985 INJECT TRIGGER POINTS 3/> DISPOSITION & COMMUNICATION FOLLOW UP F/UP WITH MASONRY SUPERVISOR (REASON: POST TPI KEVEN NECK AND KEVEN SHOULDERS) ELECTRONICALLY SIGNED BY ASIF SMITH MD, MD ON 07/17/2019 AT 05:11 PM EDT DISCLAIMER : THIS IS A VISIT SUMMARY EXTRACTED FROM THE [employer] CHART. IT IS NOT A COPY OF THE [employer] PROGRESS NOTE. FRANCES
== END ==
LOC: M PAIN 08:45
PROVIDERS: ATTEND Anesthesiology
DX: M79.18 Myalgia, other site (principal)
CPT/HCPCS: 20553; J1100

== ENCOUNTER → 2019-08-02 | Outpatient (REF) | payer OTHER, MEDICAID ==
[~2019-08-02] MED LIST changes: -BUPIVACAINE HCL 0.25% 10ML VIAL As Ordered ONE; -BUPIVACAINE HCL 0.25% 30ML VIAL As Ordered ONE; -NORCO, ANEXSIA 5/325MG TABLET (HYDROcodone/ACETAMINOPHEN) As Ordered ONE; +PANT40TA29 PO; -PANT40TA3 PO; -dexameTHASONE 10MG/1ML VIAL PRES.FREE (J1100 PER 1MG) As Ordered ONE; -diazePAM 2 MG TAB As Ordered ONE
[2019-08-02 17:24] LABS: BASO # 0.1 10^3/uL (0.0-0.2); BASO % 0.8 % (0.0-1.0); EOS # 0.3 10^3/uL (0.0-0.5); EOS % 3.6 % (0.0-3.0); HEMATOCRIT 44.5 % (36.0-47.0); LYMPH % 25.8 % (24.0-44.0); MEAN CORPUSCULAR HEMOGLOBIN 27.8 pg (27.0-33.0); MEAN CORPUSCULAR HGB CONC 31.5 g/dl (32.0-36.5); MEAN CORPUSCULAR VOLUME 88.5 fl (80.0-96.0); MONO # 0.6 10^3/uL (0.0-0.8); MONO % 7.4 % (0.0-5.0); NEUTROPHILS # 4.6 10^3/uL (1.5-8.5); NEUTROPHILS % 61.3 % (36.0-66.0); PLATELET COUNT, AUTOMATED 230 10^3/uL (150-450); RED BLOOD COUNT 5.03 10^6/uL (4.00-5.40); WHITE BLOOD COUNT 7.6 10^3/uL (4.0-10.0)
[2019-08-02 17:34] LABS: ALBUMIN 3.3 GM/DL (3.2-5.2); ALT/SGPT 25 U/L (12-78); BILIRUBIN,TOTAL 0.4 MG/DL (0.2-1.0); BLOOD UREA NITROGEN 14 MG/DL (7-18); CALCIUM LEVEL 8.9 MG/DL (8.5-10.1); CARBON DIOXIDE LEVEL 25 MEQ/L (21-32); CHLORIDE LEVEL 105 MEQ/L (98-107); CHOLESTEROL LEVEL 216 MG/DL (<200); CREATININE FOR GFR 0.77 MG/DL (0.55-1.30); FREE T4 1.37 NG/DL (0.76-1.46); GLOMERULAR FILTRATION RATE > 60.0 (>58); GLUCOSE, FASTING 89 MG/DL (70-100); HDL CHOLESTEROL 54 MG/DL (>40); LDL CHOLESTEROL 140 MG/DL (<100); NON-HDL-C 162 MG/DL; POTASSIUM SERUM 4.3 MEQ/L (3.5-5.1); SODIUM LEVEL 135 MEQ/L (136-145); THYROID STIMULATING HORMONE 0.663 uIU/ML (0.358-3.740); TOTAL PROTEIN 7.9 GM/DL (6.4-8.2); TRIGLYCERIDES LEVEL 108 MG/DL (<150)
[2019-08-02 17:38] LABS: TOTAL 25(OH) VITAMIN D 30.7 NG/ML (30.0-100.0)
[2019-08-02 17:42] LABS: HEMOGLOBIN A1c 5.4 %
[2019-08-02 18:18] LABS: HIV 1&2 SCREEN CENTAUR NEGATIVE (NEGATIVE)
[2019-08-02 21:00] LABS: CHLAMYDIA DNA AMPLIFICATION NEGATIVE (NEGATIVE); GC DNA AMPLIFICATION NEGATIVE (NEGATIVE)
== END ==
LOC: M LAB REF 16:55
PROVIDERS: ATTEND Nurse Practitioner Adult Health
DX: Z13.9 Encounter for screening, unspecified (principal)

== ENCOUNTER → 2019-11-06 | Outpatient (CLI) | payer OTHER, MEDICAID | LOC: M PAIN 10:54 | PROVIDERS: ATTEND Nurse Practitioner Family | DX: M51.17 Intervertebral disc disorders with radiculopathy, lumbosacral region (principal) ==

== ENCOUNTER → 2019-12-08 | Outpatient (CLI) | payer OTHER ==
--- NOTE | 2019-12-15 04:41 | ECWPNPC ---
PATIENT NAME: EMRE REYES : 1980 GENDER: FEMALE VISIT DATE: 12/08/2019 DISCHARGE DATE: 12/08/19 1210 VISIT LOCKED DATE TIME: PHYSICIAN: KHOI SWEET RESOURCE: KHOI SWEET REASON FOR APPOINTMENT 1. REVIEW IMAGING-DISCUSS TREATMENT PLAN HISTORY OF PRESENT ILLNESS DEPRESSION SCREENING: PHQ-2 (2015 EDITION) LITTLE INTEREST OR PLEASURE IN DOING THINGS?NOT AT ALL FEELING DOWN, DEPRESSED, OR HOPELESS?NOT AT ALL TOTAL SCORE0 GENERAL: HERE FOR FOLLOW-UP OF CHRONIC NECK PAIN. MRI OF CERVICAL SPINE DONE IN 2019 IS REVIEWED. SHOWING MILD BULGING OF C5-6. PATIENT REPORTS INTERMITTENT LEFT GREATER THAN RIGHT RADICULAR SYMPTOMS. ALSO SUFFERS FROM FIBROMYALGIA. HAS TRIALED TRIGGER POINT INJECTIONS WITHOUT MUCH IMPROVEMENT. DISCUSSED TREATMENT OPTIONS. -. FALL RISK SCREENING: SCREENING :ONE FALL WITHOUT INJURY IN THE PAST YEAR PAIN SCREENING: PATIENT HAS A COMPLAINT OF ACUTE OR CHRONIC PAIN :YES LOCATION OF PAIN:NECK, LEFT SHOULDER, RIGHT SHOULDER INTENSITY OF PAIN (SCALE OF 1 TO 10):7 WHAT DOES YOUR PAIN FEEL LIKE:ACHING, THROBBING DURATION:CONTINOUS PAIN IS INCREASED BY:ACTIVITIES PAIN IS DECREASED BY:USE OF PAIN MEDICATIONS NURSING NOTE: -. PAIN CENTER INTAKE QUESTIONS: DO YOU HAVE A HISTORY OF MRSA? :NO DO YOU TAKE A BLOOD THINNERS? :NO DO YOU HAVE ANY BLEEDING DISORDERS? :NO ANY NEW NUMBNESS OR WEAKNESS IN YOUR LEGS OR ARMS? :NO ANY PACEMAKER,DEFIBRILLATOR, OR DORSAL COLUMN STIMULATOR? :NO DO YOU HAVE ANY RASHES OR OPEN SORES? :NO ARE YOU ALLERGIC TO IV DYE? :NO ARE YOU DIABETIC? :NO ANY NEW PROBLEMS WITH YOUR MEDICATIONS? :NO HAVE YOU RECEIVED A VACCINE IN THE PAST 30 DAYS? :NO DO YOU PLAN TO RECEIVE A VACCINE IN THE NEXT 21 DAYS? :NO DO YOU NEED ANY PRESCRIPTION? :NO DO YOU TAKE ANY IMMUNOSUPPRESSIVE MEDICATIONS? :NO IS THERE A CHANCE YOU COULD BE ? :NO ARE YOU BREAST FEEDING? :NO CURRENT MEDICATIONS TAKING ZONISAMIDE 100 MG CAPSULE 1 CAPSULE ORALLY TWICE A DAY TAKING TIZANIDINE HCL 2 MG TABLET 1 TAB ORALLY TWICE DAILY NEEDED TAKING FERROUS SULFATE 325 MG CAPSULE 1 CAP(S) ORALLY TWICE A DAY TAKING LEVOTHYROXINE SODIUM 150 MCG TABLET 1 TABLET ON AN EMPTY STOMACH IN THE MORNING ORALLY ONCE A DAY TAKING SERTRALINE HCL 100 MG TABLET 1 TABLET ORALLY ONCE A DAY TAKING GABAPENTIN 600 MG TABLET 1 CAPSULE ORALLY FOUR TIMES DAILY TAKING VITAMIN D3 1000 UNIT TABLET TAKE 1 TABLET BY MOUTH ONCE DAILY ORALLY ONCE A DAY TAKING PANTOPRAZOLE SODIUM 40 MG TABLET DELAYED RELEASE 1 TABLET ORALLY ONCE A DAY TAKING SERTRALINE HCL 25 MG TABLET 1 TABLET ORALLY ONCE A DAY TAKING ESTRACE 0.1 MG/GM CREAM 1 GRAM DIRECTED VAGINAL THREE TIMES PER WEEK, NOTES: 07/13 TAKING OXYBUTYNIN CHLORIDE ER 15 MG TABLET EXTENDED RELEASE 24 HOUR 1 TABLET ORALLY DAILY TAKING AIMOVIG 140 MG/ML SOLUTION AUTO-INJECTOR DIRECTED SUBCUTANEOUS MONTHLY, NOTES: 06/25 TAKING CELEBREX 100 MG CAPSULE 1 CAPSULE WITH FOOD ORALLY ONCE A DAY TAKING ACETAMINOPHEN 500 MG TABLET 1 TABLET NEEDED ORALLY TWICE A DAY, NOTES: LAST WEEK NOT-TAKING NAPROSYN 500 MG TABLET 1 TABLET WITH FOOD OR MILK ORALLY TWICE A DAY NEEDED NOT-TAKING TYLENOL 325 MG TABLET 2 TABLETS NEEDED ORALLY EVERY 6 HRS MEDICATION LIST REVIEWED AND RECONCILED WITH THE PATIENT PAST MEDICAL HISTORY DIVERTICULOSIS FISTULA IN AN[place] (SEE RECORDS DR. DICKSON HAYES) ANXIETY AND DEPRESSION CHRONIC HEADACHES (MIGRAINE, MAYBE OCCIPITAL NEURALGIA), SEES NEURO HYPOTHYROIDISM EVAL FOR ABSENCE SEIZURES: DX PSYCHOGENIC NON-EPILEPTIC SEIZURES AFTER MONITORED INPATIENT AT [facility], CBT RECOMMENDED PER NEUROLOGY, CONVERSION DISORDER FOLLOWING SEIZURE EVAL BACKPAIN PERIMENOPAUSE NECK AND SHOULDER PAIN ALLERGIES PENICILLIN (FOR ALLERGIES USE ONLY): UNKNOWN - ALLERGY SURGICAL HISTORY APPENDECTOMY 1995 CHOLECYSTECTOMY 2000 FISTULA REPAIR 2009 RIGHT ARM BONE RESET 1991 TUBAL LIGATION 2005 COLONOSCOPY 2009, 2013 EGD 2013 PARTIAL HYSTERECTOMY (UTERUS, FALLOPIAN TUBES, CERVIX) 02/2018 FAMILY HISTORY FATHER: ALIVE 71 YRS, PANCREATIC CANCER, ACUTE LEUKEMIA, LUPUS, DIAGNOSED WITH OTHER MALIGNANT NEOPLASM OF UNSPECIFIED SITE MOTHER: , RHEUMATOID ARTHRITIS, FROM COPD MATERNAL GRAND MOTHER: CT IN LATE 60S, DIABETES MELLITUS 1 SON(S) , 1 DAUGHTER(S) - HEALTHY. HEART DISEASE, COPD, DEPRESSION, HYPERTENSION, ANXIETY, HYPERCHOLESTEROLEMIA, PROSTATE CANCER. SOCIAL HISTORY GENERAL: TOBACCO USE ARE YOU A:NONSMOKER LATEX QUESTIONNAIRE LATEX ALLERGY : HAVE YOU EVER DEVELOPED ANY TYPE OF REACTION AFTER HANDLING LATEX PRODUCTS SUCH RUBBER GLOVES, CONDOMS, DIAPHRAGMS, BALLOONS, SOCKS, OR UNDERWEAR?NO LATEX ALLERGY : HAVE YOU EVER DEVELOPED ANY TYPE OF REACTION DURING OR AFTER DENTAL APPOINTMENT, VAGINAL/RECTAL EXAMINATION, SURGICAL PROCEDURE, OR ANY OTHER EXPOSURE?NO LATEX RISK : HAVE YOU EVER HAD ANY DIFFICULTY BREATHING OR HIVES AFTER EATING OR HANDLING ANY FRUITS, OR VEGETABLES; SUCH KIWI, BANANAS, STONE FRUITS, OR CHESTNUTSNO LATEX RISK : DO YOU HAVE A PREVIOUS PERSONAL HISTORY OF MORE THAN NINE SURGERIES, SPINA BIFIDA, OR REPEATED CATHERIZATIONS? NO LATEX RISK : ARE YOU FREQUENTLY EXPOSED TO LATEX PRODUCTS IN YOUR OCCUPATION?NO DATE ASKED : 12/08/2019 BMI CARE GOAL FOLLOW-UP ABOVE NORMAL BMI FOLLOW-UPWEIGHT MONITORING ALCOHOL SCREENING DID YOU HAVE A DRINK CONTAINING ALCOHOL IN THE PAST YEAR?NO POINTS0 INTERPRETATIONNEGATIVE RECREATIONAL DRUG USE DRUG USE? DENIES 07/14/19 CAFFEINE CAFFEINE USE?YES HOW OFTEN AND HOW MUCH? ICED TEA 36 OZ DAILY SEXUAL HX HAD SEX IN THE LAST 12 MONTHS (VAGINAL, ORAL, OR ANAL)?YES WITHMEN ONLY PREVENTION STRATEGIES DISCUSSED:OTHER USE PROTECTION?NO LMP:11/22/15 HAVE YOU EVER HAD AN STD?NO YAZDANISM NO CHURCH BELIEFS THAT WOULD IMPACT HEALTH CARE. LANGUAGE GUYANESE. EDUCATION LEVEL OF EDUCATION:COLLEGE LEARNING BARRIERS / SPECIAL NEEDS CHANGE FROM LAST VISIT?NO BARRIERS TO LEARNING?NO HEARING IMPAIRED?NO VISION IMPAIRED?YES COGNITIVELY IMPAIRED?NO :CORRECTIVE LENSES READINESS TO LEARN?YES LEARNING PREFERENCES?NO LEARNING CAPABILITIES PRESENT?YES EMOTIONAL BARRIERS?NO SPECIAL DEVICES?NO DELICATESSEN STORE MANAGER NEEDED?NO DOMESTIC VIOLENCE DO YOU FEEL SAFE IN YOUR ENVIRONMENT?YES OCCUPATION: UNEMPLOYED, HAS ONE RETAKE EXAM TO COMPLETE MASTERS IN HUMAN RESOURCES. DIET: REGULAR. EXERCISE: NO REGULAR EXERCISE. MARITAL STATUS: SHE IS TO DAV REYES, BUT THEY HAVE BEEN SINCE 08/2005; SHE IS ENGAGED TO ANN MARIE VANG JR. 06/07/17 PT IS NO LONGER WITH ANN MARIE.. OTHERS AT HOME: FIANCE AND SON; DAUGHTER LIVES IN [place] WITH HER FATHER. PAIN CLINIC PFS, CLERGY, PUBLIC HEALTH REFERRALS HAS THE PATIENT BEEN EDUCATED REGARDING HIS/HER PLAN OF CARE?YES HAS THE PATIENT BEEN EDUCATED REGARDING PAIN, THE RISK FOR PAIN, THE IMPORTANCE OF EFFECTIVE PAIN MANAGEMENT, AND THE PAIN ASSESSMENT PROCESS?YES ADVANCE DIRECTIVE ADVANCE DIRECTIVE DISCUSSED WITH PATIENT:YES 07/06/2019 PT STATES THAT SHE DOES NOT HAVE A HCP AT THIS TIME, DECLINES ASSISTANCE WITH PAPERWORK. AD HOSPITALIZATION/MAJOR DIAGNOSTIC PROCEDURE SURGERY RELATED SEIZURE STUDY [facility] 2017 CHILDBIRTH REVIEW OF SYSTEMS CONSTITUTIONAL: ANY RECENT FEVER NO . CHILLS NO . WEIGHT CHANGE OF UNKNOWN REASONS NO . GASTROENTEROLOGY: NEW UNEXPLAINABLE CHANGES IN BOWEL CONTROL NO . CONSTIPATION NO . GENITOURINARY: ANY NEW CHANGE IN BLADDER CONTROL? NO . NEUROLOGY: NEW ONSET DIZZINESS OR NEUROLOGICAL CHANGES NOT MENTIONED NO . NEW NUMBNESS OR PAIN PATTERNS NOT MENTIONED AND PERTINENT TO TODAY'S VISIT NO . CARDIOLOGY: NEW CHEST PRESSURE NO . NEW CHEST PAIN NO . RESPIRATORY: UNEXPLAINABLE COUGH NO . NEW SHORTNESS OF BREATH NO . VITAL SIGNS WT 284.2 LBS, HT 62 IN, BMI 51.98 INDEX, BP 123/82 MM HG, HR 78 /MIN, RR 18 /MIN, TEMP 96.4 F, OXYGEN SAT % 97%, SAFE IN ENV? (Y/N) YES, NA INITIALS AW 1131, REVIEWED BY: GISSEL. EXAMINATION GENERAL EXAMINATION: GENERALAWAKE,ALERT ,PLEASANT . PSYCHAFFECT NORMAL . LUNGS:LUNG MAIN ARE CLEAR TO AUSCULTATION BILATERALLY. GOOD MOVEMENT OF AIR . HEART:S1, S2 IN A REGULAR RATE AND RHYTHM. NO SIGNIFICANT MURMURS, RUBS OR GALLOPS NOTED . ASSESSMENTS MYALGIA OF MUSCLE OF NECK - M79.18 (PRIMARY) FIBROMYALGIA - M79.7 TREATMENT MYALGIA OF MUSCLE OF NECK NOTES: CONTINUE HOME EXCERSISE/STRETCHING/WEIGHT LOSS STRATEGIES.PATIENT WILL CALL IF SHE IS INTERESTED IN PURSUING ANY MORE INJECTION TRIALS FOR HER NECK PAIN. PROCEDURE CODES FA211 ESTABILISHED PATIENT [facility] CHARGE DISPOSITION & COMMUNICATION FOLLOW UP PATIENT WILL CALL (REASON: NECK PAIN) ELECTRONICALLY SIGNED BY SOLA MCKEON ON 12/14/2019 AT 03:44 PM EST DISCLAIMER : THIS IS A VISIT SUMMARY EXTRACTED FROM THE [employer] CHART. IT IS NOT A COPY OF THE [employer] PROGRESS NOTE. LUCILAD
== END ==
LOC: M PAIN 11:15
PROVIDERS: ATTEND Nurse Practitioner Family
DX: M79.18 Myalgia, other site (principal); M79.7 Fibromyalgia; G43.909 Migraine, unspecified, not intractable, without status migrainosus; E03.9 Hypothyroidism, unspecified; Z86.59 Personal history of other mental and behavioral disorders; Z88.0 Allergy status to penicillin; E66.01 Morbid (severe) obesity due to excess calories; Z68.43 Body mass index [BMI] 50.0-59.9, adult; Z79.899 Other long term (current) drug therapy

== ENCOUNTER → 2020-01-08 | Outpatient (RCR) | payer OTHER | LOC: M PT 12-13 11:17 | PROVIDERS: ATTEND Physician Assistant Surgical | DX: M17.11 Unilateral primary osteoarthritis, right knee (principal) ==

== ENCOUNTER → 2020-01-30 | Outpatient (REF) | payer OTHER | LOC: M LAB REF 16:26 | PROVIDERS: ATTEND Nurse Practitioner Adult Health | DX: E03.9 Hypothyroidism, unspecified (principal) ==

== ENCOUNTER → 2020-04-15 | Outpatient (REF) | payer OTHER ==
[~2020-04-15] MED LIST changes: +GABA-282 PO; -GABA-843 PO
[2020-04-15 18:07] LABS: BASO # 0.1 10^3/uL (0.0-0.2); BASO % 0.8 % (0.0-1.0); EOS # 0.3 10^3/uL (0.0-0.5); EOS % 3.8 % (0.0-3.0); HEMATOCRIT 44.6 % (36.0-47.0); HEMOGLOBIN 13.8 g/dl (12.0-15.5); LYMPH # 3.2 10^3/uL (1.5-5.0); LYMPH % 36.5 % (24.0-44.0); MEAN CORPUSCULAR HEMOGLOBIN 27.6 pg (27.0-33.0); MEAN CORPUSCULAR HGB CONC 30.9 g/dl (32.0-36.5); MEAN CORPUSCULAR VOLUME 89.2 fl (80.0-96.0); MONO # 0.6 10^3/uL (0.0-0.8); MONO % 7.4 % (2.0-8.0); NEUTROPHILS # 4.4 10^3/uL (1.5-8.5); NEUTROPHILS % 50.7 % (36.0-66.0); PLATELET COUNT, AUTOMATED 243 10^3/uL (150-450); WHITE BLOOD COUNT 8.7 10^3/uL (4.0-10.0)
[2020-04-15 18:39] LABS: ALBUMIN 3.3 GM/DL (3.2-5.2); ALT/SGPT 23 U/L (12-78); BILIRUBIN,TOTAL 0.2 MG/DL (0.2-1.0); BLOOD UREA NITROGEN 17 MG/DL (7-18); CARBON DIOXIDE LEVEL 29 MEQ/L (21-32); CHLORIDE LEVEL 103 MEQ/L (98-107); CHOLESTEROL LEVEL 216 MG/DL (<200); CHOLESTEROL RISK RATIO 3.428 (<5); CREATININE FOR GFR 0.87 MG/DL (0.55-1.30); GLOMERULAR FILTRATION RATE > 60.0 (>58); GLUCOSE, FASTING 80 MG/DL (70-100); HDL CHOLESTEROL 63 MG/DL (>40); LDL CHOLESTEROL 126 MG/DL (<100); NON-HDL-C 153 MG/DL; POTASSIUM SERUM 4.7 MEQ/L (3.5-5.1); SODIUM LEVEL 137 MEQ/L (136-145); TOTAL 25(OH) VITAMIN D 26.8 NG/ML (30.0-100.0); TOTAL PROTEIN 7.9 GM/DL (6.4-8.2); TRIGLYCERIDES LEVEL 137 MG/DL (<150)
[2020-04-17 12:10] LABS: ANTINUCLEAR ANTIBODIES DIRECT Negative (Negative)
== END ==
LOC: M LAB REF 16:58
PROVIDERS: ATTEND Pediatrics
DX: E03.9 Hypothyroidism, unspecified (principal); G40.909 Epilepsy, unspecified, not intractable, without status epilepticus; E55.9 Vitamin D deficiency, unspecified; Z13.220 Encounter for screening for lipoid disorders; L85.3 Xerosis cutis

== ENCOUNTER 2020-06-20 16:43 | Emergency (ER) | payer OTHER ==
[~2020-06-20] VITALS: Ht 157.5 cm; Wt 130.6 kg
[2020-06-20] MEDS ORDERED: FAMO1TAB25 PO (16:54)
[2020-06-20] MEDS ORDERED: ESTR0.1C5 (16:54)
[2020-06-20] MEDS ORDERED: CELE50CA PO (16:54)
[2020-06-20 17:42] LABS: BASO # 0.1 10^3/uL (0.0-0.2); BASO % 0.6 % (0.0-1.0); EOS # 0.3 10^3/uL (0.0-0.5); EOS % 2.8 % (0.0-3.0); HEMATOCRIT 42.5 % (36.0-47.0); HEMOGLOBIN 13.4 g/dl (12.0-15.5); LYMPH # 2.1 10^3/uL (1.5-5.0); LYMPH % 24.1 % (24.0-44.0); MEAN CORPUSCULAR HEMOGLOBIN 28.5 pg (27.0-33.0); MEAN CORPUSCULAR HGB CONC 31.5 g/dl (32.0-36.5); MEAN CORPUSCULAR VOLUME 90.2 fl (80.0-96.0); MONO # 0.6 10^3/uL (0.0-0.8); MONO % 6.9 % (2.0-8.0); NEUTROPHILS # 5.7 10^3/uL (1.5-8.5); NEUTROPHILS % 64.6 % (36.0-66.0); PLATELET COUNT, AUTOMATED 239 10^3/uL (150-450); RED BLOOD COUNT 4.71 10^6/uL (4.00-5.40); WHITE BLOOD COUNT 8.8 10^3/uL (4.0-10.0)
[2020-06-20 17:58] LABS: ALBUMIN 3.1 GM/DL (3.2-5.2); ALT/SGPT 26 U/L (12-78); BILIRUBIN,DIRECT < 0.1 MG/DL (0.0-0.2); BILIRUBIN,TOTAL 0.2 MG/DL (0.2-1.0); BLOOD UREA NITROGEN 15 MG/DL (7-18); C REACTIVE PROTEIN QUANTITATIV 1.88 MG/DL (0.00-0.30); CALCIUM LEVEL 7.9 MG/DL (8.5-10.1); CARBON DIOXIDE LEVEL 25 MEQ/L (21-32); CHLORIDE LEVEL 110 MEQ/L (98-107); CREATININE FOR GFR 0.74 MG/DL (0.55-1.30); GLOMERULAR FILTRATION RATE > 60.0 (>58); GLUCOSE, FASTING 101 MG/DL (70-100); HCG, SERUM QUANTITATIVE < 1.0 MIU/ML; LIPASE 71 U/L (73-393); SODIUM LEVEL 140 MEQ/L (136-145); TOTAL PROTEIN 7.3 GM/DL (6.4-8.2)
[2020-06-20 18:16] LABS: ERYTHROCYTE SEDIMENTATION RATE 35 mm/hr (0-20)
[2020-06-20] MEDS ORDERED: CYCLOBENZAPRINE 10MG TABLET PO ONE (19:20)
[2020-06-20 19:58] VITALS: BP 142/87
== END 2020-06-20 20:10 | disposition home or self-care (01) ==
LOC: M ED 16:43
DX: M26.603 Bilateral temporomandibular joint disorder, unspecified (principal); K62.5 Hemorrhage of anus and rectum; Z88.0 Allergy status to penicillin; Z79.899 Other long term (current) drug therapy

== ENCOUNTER → 2020-07-26 | Outpatient (CLI) | payer OTHER ==
[~2020-07-26] MED LIST changes: +CELE50CA PO; +ESTR0.1C5; +FAMO10TA50 PO
--- NOTE | 2020-07-26 10:12 | REPVR ---
PROCEDURE INFORMATION: Exam: CT Maxillofacial Without Contrast; Mandible Exam date and time: 07/26/2020 7:48 AM Age: 40 years old Clinical indication: Injury or trauma; Other: Teeth extraction; Fracture, traumatic; Closed fracture; Mandible; Prior surgery; Surgery date: <1 month; Additional info: Fracture of alveolus of left mandible TECHNIQUE: Imaging protocol: Computed tomography maxillofacial without contrast. Exam focused on the mandible. Radiation optimization: All CT scans at this facility use at least one of these dose optimization techniques: automated exposure control; mA and/or kV adjustment per patient size (includes targeted exams where dose is matched to clinical indication); or iterative reconstruction. COMPARISON: CT Head W/O FOLL BY WITH CONTR 12/22/2013 1:31 PM FINDINGS: Bones/joints: There are bilateral posterior mandibular molar resection sockets. There is a focal fracture along the lateral aspect of the left mandibular angle at the tooth extraction site. Paranasal sinuses: Normal. No air-fluid levels. Soft tissues: Unremarkable. IMPRESSION: Bilateral posterior mandibular molar resection sites. Focal fracture along the lateral margin of the left mandible at the extraction site. Electronically signed by: Bessy Moncada On 07/26/2020 10:12:27 AM
== END ==
LOC: M RAD 07:32
PROVIDERS: ATTEND Dentist
DX: S02.672A Fracture of alveolus of left mandible, initial encounter for closed fracture (principal); X58.XXXA Exposure to other specified factors, initial encounter; Y92.9 Unspecified place or not applicable

== ENCOUNTER → 2023-02-22 | Outpatient (CLI) | payer OTHER ==
[~2023-02-22] MED LIST changes: -ZONI100C17 PO; +ZONI100C67 PO
[2023-02-22 09:59] LABS: BASO # 0.1 10^3/uL (0.0-0.2); BASO % 0.7 % (0.0-1.0); EOS # 0.2 10^3/uL (0.0-0.5); EOS % 2.4 % (0.0-3.0); HEMATOCRIT 43.3 % (36.0-47.0); HEMOGLOBIN 13.8 g/dl (12.0-15.5); LYMPH # 2.3 10^3/uL (1.5-5.0); LYMPH % 28.2 % (24.0-44.0); MEAN CORPUSCULAR HGB CONC 31.9 g/dl (32.0-36.5); MEAN CORPUSCULAR VOLUME 87.8 fl (80.0-96.0); MONO # 0.6 10^3/uL (0.0-0.8); NEUTROPHILS % 61.1 % (36.0-66.0); PLATELET COUNT, AUTOMATED 260 10^3/uL (150-450); RED BLOOD COUNT 4.93 10^6/uL (4.00-5.40); WHITE BLOOD COUNT 8.2 10^3/uL (4.0-10.0)
[2023-02-22 10:13] LABS: ERYTHROCYTE SEDIMENTATION RATE 84 mm/hr (0-20)
[2023-02-22 10:18] LABS: URIC ACID 5.7 MG/DL (3.1-7.8)
[2023-02-22 10:20] LABS: ALBUMIN 3.2 G/DL (3.2-5.2); ALKALINE PHOSPHATASE 91 U/L (46-116); ALT/SGPT 22 U/L (7.0-40); AST/SGOT 17 U/L (<34); BILIRUBIN,TOTAL 0.3 MG/DL (0.3-1.2); BLOOD UREA NITROGEN 12 MG/DL (9-23); CALCIUM LEVEL 8.6 MG/DL (8.5-10.1); CARBON DIOXIDE LEVEL 24 MMOL/L (20-31); CHLORIDE LEVEL 106 MMOL/L (98-107); GLOMERULAR FILTRATION RATE > 60.0 (>58); GLUCOSE, FASTING 122 MG/DL (60-100); POTASSIUM SERUM 3.7 MMOL/L (3.5-5.1); RHEUMATOID FACTOR QUANT < 3.5 IU/ML (<14); SODIUM LEVEL 138 MMOL/L (136-145); TOTAL PROTEIN 7.4 G/DL (5.7-8.2)
== END ==
LOC: M LAB 09:20
PROVIDERS: ATTEND Nurse Practitioner Adult Health
DX: M54.2 Cervicalgia (principal); M79.7 Fibromyalgia; D64.9 Anemia, unspecified; E78.5 Hyperlipidemia, unspecified; Z79.899 Other long term (current) drug therapy

== ENCOUNTER → 2023-10-25 | Outpatient (REF) | payer OTHER ==
[2023-10-25 17:44] LABS: BASO # 0.1 10^3/uL (0.0-0.2); BASO % 1.1 % (0.0-1.0); EOS # 0.2 10^3/uL (0.0-0.5); EOS % 2.4 % (0.0-3.0); HEMOGLOBIN 14.7 g/dl (12.0-15.5); LYMPH % 28.2 % (24.0-44.0); MEAN CORPUSCULAR HEMOGLOBIN 29.1 pg (27.0-33.0); MEAN CORPUSCULAR HGB CONC 32.7 g/dl (32.0-36.5); MEAN CORPUSCULAR VOLUME 88.9 fl (80.0-96.0); MONO # 0.5 10^3/uL (0.0-0.8); MONO % 7.6 % (2.0-8.0); NEUTROPHILS # 4.3 10^3/uL (1.5-8.5); NEUTROPHILS % 60.3 % (36.0-66.0); PLATELET COUNT, AUTOMATED 238 10^3/uL (150-450); RED BLOOD COUNT 5.06 10^6/uL (4.00-5.40); WHITE BLOOD COUNT 7.1 10^3/uL (4.0-10.0)
[2023-10-25 18:19] LABS: ALBUMIN 3.6 G/DL (3.2-5.2); ALKALINE PHOSPHATASE 93 U/L (46-116); ALT/SGPT 20 U/L (7.0-40); AST/SGOT 12 U/L (<34); BILIRUBIN,TOTAL 0.4 MG/DL (0.3-1.2); BLOOD UREA NITROGEN 14 MG/DL (9-23); CALCIUM LEVEL 8.9 MG/DL (8.5-10.1); CARBON DIOXIDE LEVEL 23 MMOL/L (20-31); CHLORIDE LEVEL 107 MMOL/L (98-107); CHOLESTEROL LEVEL 245 MG/DL (<200); CHOLESTEROL RISK RATIO 5.12 (<5); CREATININE FOR GFR 0.92 MG/DL (0.55-1.30); GLOMERULAR FILTRATION RATE > 60.0 (>58); GLUCOSE, FASTING 84 MG/DL (60-100); HDL CHOLESTEROL 47.8 MG/DL (>40); NON-HDL-C 197.2 MG/DL; POTASSIUM SERUM 4.7 MMOL/L (3.5-5.1); SODIUM LEVEL 139 MMOL/L (136-145); THYROID STIMULATING HORMONE 10.016 uIU/ML (0.55-4.78); TOTAL PROTEIN 7.8 G/DL (5.7-8.2); TRIGLYCERIDES LEVEL 196 MG/DL (<150)
== END ==
LOC: M LAB REF 16:40
PROVIDERS: ATTEND Physician Assistant
DX: E66.01 Morbid (severe) obesity due to excess calories (principal); Z68.43 Body mass index [BMI] 50.0-59.9, adult; Z13.220 Encounter for screening for lipoid disorders; E03.9 Hypothyroidism, unspecified

== ENCOUNTER → 2023-11-19 | Outpatient (CLI) | payer OTHER ==
[~2023-11-19] MED LIST changes: +GABA-1172 PO; -GABA-282 PO
== END ==
LOC: M WHC 12:18
PROVIDERS: ATTEND Physician Assistant
DX: Z12.31 Encounter for screening mammogram for malignant neoplasm of breast (principal)

== ENCOUNTER → 2023-12-09 | Outpatient (REF) | payer OTHER | LOC: M LAB REF 17:40 | PROVIDERS: ATTEND Physician Assistant | DX: E03.9 Hypothyroidism, unspecified (principal) ==

== ENCOUNTER → 2024-11-24 | Outpatient (CLI) | payer OTHER ==
[~2024-11-24] MED LIST changes: +CELE0.09 PO; -CELE50CA PO; +CELE50CA17 PO; +FERR325T19 PO; +GABA-1490 PO; +HEARTAB2 PO; +OXYB15TA14 PO; +VITA-168 PO; +ZOLO100T PO; +ZONI50CA11 PO
== END ==
LOC: M WHC 12:03
PROVIDERS: ATTEND Nurse Practitioner Family
DX: Z12.31 Encounter for screening mammogram for malignant neoplasm of breast (principal); R92.313 Mammographic fatty tissue density, bilateral breasts